=== PATIENT | female | born 1975 | race Caucasian/White ===

== ENCOUNTER 2020-06-21 11:29 | Inpatient (IN) | payer BC ==
[2020-06-21] MEDS ORDERED: Acetaminophen 650 MG Supp RECTAL PRN (12:21)
[2020-06-21] MEDS ORDERED: Iopamidol 612 MG/ML 50 ML SDV PO ONE (12:43)
[2020-06-21 12:54] LABS: HEMOGLOBIN A1C 4.2 % (4.5-6.2)
[2020-06-21] MEDS: Dextrose 5%-Lactated Ringers 1,000 ML IV SCH ×2 (13:05→19:01)
[2020-06-21] MEDS: Pantoprazole 40 MG Vial IV SCH (14:10)
[2020-06-21] MEDS ORDERED: Sodium Chloride 0.9% 10 ML Syringe FLUSH ONE (14:17)
[2020-06-21] MEDS ORDERED: Iopamidol 612 MG/ML 100 ML Bottle IV SCH (14:30)
[2020-06-21] MEDS: Potassium Chloride 20 MEQ, Lidocaine 1% 2 ML in Sodium Chloride 0.9% 100 ML IV SCH ×3 (14:30→18:35)
--- NOTE | 2020-06-21 15:11 | CT ---
Abdomen Pelvis w Cont CLINICAL HISTORY: Loose stools, malnutrition COMPARISON: None. TECHNIQUE: Transverse scans were obtained from the base of the lungs to the pubic symphysis following oral contrast and IV infusion of contrast.Auto dosage reduction and iterative reconstructiontechniques employed. FINDINGS: Patient has had previous gastric surgery. There is some fluid in the stomach as well as the descending duodenum. The duodenum narrows as it crosses the aorta behind the SMA. There is generalized small bowel distention in a nonspecific pattern. There is mucosal thickening involving the right colon The lung bases are clear. The liver shows diffuse steatosis. There is a low-attenuation focus in the posterior segment of the right lobe of the liver measuring 1.2 x 1.4 cm. The gallbladder has been removed. The spleen has a normal size and shape. The pancreas shows no mass or inflammatory change The adrenal glands appear normal bilaterally . The kidneys show no mass, stones or hydronephrosis. There is a 1 cm cyst in the upper pole of the right kidney. The ureters have a normal course and caliber. The bladder has normal contour. Uterus is enlarged and heterogeneous with multiple nodules consistent with fibroids. There is a [address] The aorta has a normal contour. There is no suspicious retroperitoneal adenopathy. IMPRESSION: Previous gastric surgery Fluid-filled mildly dilated descending and proximal transverse duodenum which narrows at the crossing of the aorta and SMA. Diffuse mucosal thickening involving the right colon Mild generalized small bowel distention in a nonspecific pattern Previous cholecystectomy 1.2 x 1.4 cm low-attenuation lesion in the right lobe of the liver. This is indeterminate. Should be correlated with ultrasound.
[2020-06-21] MEDS ORDERED: MVI, Adult with Vitamin K 10 ML, Thiamine 100 MG, Magnesium Sulfate 2 GM, Folic Acid 1 ... IV ONE ×5 (16:00)
[2020-06-22] MEDS: Dextrose 5%-Lactated Ringers 1,000 ML IV SCH ×3 (04:34→17:50)
[2020-06-22] MEDS ORDERED: Bupivacaine 0.5% 50 ML MDV ONE (06:38)
[2020-06-22] MEDS ORDERED: Lidocaine 1% with EPINEPHrine 1:100,000 50 ML MDV ONE (06:39)
--- NOTE | 2020-06-22 09:59 | US ---
Abdomen Ltd CLINICAL HISTORY: Liver lesion on current CT FINDINGS: Real-time images through the liver show no focal mass, cyst or intrahepatic ductal dilatation. IMPRESSION: Hypodense lesion seen on current CT is not identified by ultrasound. This is still felt to be a real lesion on CT. It may be isoechoic on ultrasound. MRI of the liver should be considered
[2020-06-22] MEDS ORDERED: Midazolam 1 MG/ML 2 ML SDV ONE (10:09)
[2020-06-22] MEDS ORDERED: Propofol 200 MG/20 ML SDV ONE ×2 (10:09→11:13)
[2020-06-22] MEDS ORDERED: fentaNYL 100 MCG/2 ML SDV ONE (10:09)
[2020-06-22] MEDS ORDERED: Sodium Chloride 0.9% 10 ML ONE (11:14)
[2020-06-22] MEDS ORDERED: ceFAZolin 1 GM Vial ONE (11:14)
--- NOTE | 2020-06-22 12:54 | PN ---
DATE OF SERVICE: 06/22/2020 SUBJECTIVE: Paul is a direct admit from [facility] yesterday for severe protein malnutrition, diarrhea. See copy of history and physical scanned into [employer] electronic medical record. This morning, Paul denies pain. Vital signs have been stable. She is n.p.o. to have a Morin catheter placed. Oral intake 1260. Urine output 1500. REVIEW OF SYSTEMS: CONSTITUTIONAL: Denies any headache, dizziness. CHEST: No chest pain, shortness of breath, or fast irregular heartbeat. Has had 1 stool that was formed. : No UTI signs and symptoms. MUSCULOSKELETAL: Reports less musculoskeletal pain. Continues to have the peripheral lower extremity edema. PSYCHIATRIC: No depression or anxiety. SKIN: No rash. All 12 systems were reviewed and negative for any positives or negatives in addition to chief complaint. LABORATORY DATA: Hemoglobin 10.1 this morning. Potassium on admission was 2.7 and today it is 3.7 after 60 mEq of KCl IV. Calcium 7.1, total protein 3.4 (normal 6.4 to 8.2), albumin 1.4 (3.4 to 5.4). OBJECTIVE: GENERAL: Paul Shelton is a pleasant 44-year-old female. VITAL SIGNS: Height 5 feet 6 inches, weight is 145 pounds, BMI 23.4. TPR at 0200, 96.4, 60, 16, blood pressure 101/71. HEENT: Negative. NECK: Supple. HEART: Regular rate and rhythm. LUNGS: Clear. ABDOMEN: Soft. There is some firmness in the left upper mid quadrant and minimal tenderness with palpation. EXTREMITIES: Reveal 1+ peripheral edema. NEURO: Intact. PSYCHIATRIC: Mood and affect appropriate. SKIN: Without rash. ASSESSMENT: 1. Severe protein malnutrition. 2. Low albumin. 3. Iron deficiency anemia. Recently received iron infusions. 4. 30-pound weight loss. 5. Diarrhea, greater than 10 stools. 6. Status post Aaron-en-Y gastric bypass surgery. 7. Unspecified surgical malabsorption. 8. B12 deficiency. PLAN: 1. Remain n.p.o. for placement of Morin catheter. 2. Albumin 50 g IV daily for 4 days. 3. Ultrasound of liver for a 1.2 x 1.4 cm low-attenuation lesion, right lobe of liver, per request of radiologist. 4. Obtain original operative report of Aaron-en-Y gastric bypass surgery. 5. Additional orders if needed will be written post placement of Morin catheter. Will evaluate p.r.n. or in the a.m. Helen Heath PA-C /[id number]
[2020-06-22] MEDS: Pantoprazole 40 MG Vial IV SCH (15:00)
[2020-06-22] MEDS: 1: AA 5%/Calcium/D15W/Lytes 1,000 ML with MVI, Adult with Vitamin K 10 ML, Chromium/Copp IV SCH ×3 (17:50)
[2020-06-22] MEDS: Fat Emulsion 100 ML IV SCH (17:51)
[2020-06-22] MEDS: Acetaminophen 325 MG Tab PO PRN (20:28)
[2020-06-23] MEDS: Acetaminophen 325 MG Tab PO PRN (04:12)
[2020-06-23] MEDS ORDERED: Central Total Parenteral Nutrition Bag SCH (08:15)
[2020-06-23] MEDS: 1: AA 5%/Calcium/D15W/Lytes 1,000 ML with MVI, Adult with Vitamin K 10 ML, Chromium/Copp IV SCH ×9 (09:51→20:28)
[2020-06-23] MEDS: Pantoprazole 40 MG Tab.CR PO SCH (14:48)
--- NOTE | 2020-06-23 17:14 | PN ---
DATE OF SERVICE: 06/23/2020 SUBJECTIVE: Paul has had 3 bowel movements yesterday. She did request to be changed from a step-4 diet to a regular diet, and since changing to a regular diet, she has had multiple bowel movements, which are associated more with dumping. She also has what sounds like lactose intolerance because she has a lot of gas bloating and diarrhea after drinking milk. Albumin continues to be low at 2. Today, globulin is 1.8 and total protein is 3.8. She had a Morin catheter placed yesterday and has been started on TPN. Hemoglobin is 9.9. REVIEW OF SYSTEMS: Denies any headache, dizziness, loss of coordination, chest pain, shortness of breath, or cough. Denies any nausea, vomiting, diarrhea, or constipation. No abdominal pain. EXTREMITIES: Less peripheral edema. NEUROLOGIC: Negative. PSYCHIATRIC: Negative. Remainder of review of systems negative for any pertinent positives and negatives. OBJECTIVE: GENERAL: Paul Shelton is a pleasant 44-year-old female. She is alert and orientated. VITAL SIGNS: TPR at 0700 of 95.9, 54, and 16. Blood pressure 115/71. HEENT: Negative. NECK: Supple. HEART: Regular rate and rhythm. LUNGS: Clear. ABDOMEN: Soft, flat, and nontender. EXTREMITIES: Without peripheral edema. ASSESSMENT: 1. Severe protein malnutrition. 2. Low albumin. 3. Iron-deficiency anemia. 4. A 30-pound weight loss. 5. Diarrhea. 6. Status post Aaron-en-Y gastric bypass surgery. 7. Unspecified surgical malabsorption. 8. B12 deficiency. PLAN: 1. Continue same TPN rate and content. 2. Check CBC, CMP, magnesium, and phosphorus and may shower. 3. We will evaluate p.r.n. or in a.m. Helen Heath PA-C /[id number]
[2020-06-23] MEDS: Fat Emulsion 100 ML IV SCH (18:35)
[2020-06-24] MEDS: Dextrose 5%-Lactated Ringers 1,000 ML IV SCH (05:20)
[2020-06-24] MEDS: 1: AA 5%/Calcium/D15W/Lytes 1,000 ML with MVI, Adult with Vitamin K 10 ML, Chromium/Copp IV SCH ×3 (07:21)
[2020-06-24] MEDS: Pantoprazole 40 MG Tab.CR PO SCH (07:24)
[2020-06-24] MEDS: AA 5%/Calcium/D15W/Lytes 1,000 ML IV SCH (17:57)
[2020-06-24] MEDS: Fat Emulsion 100 ML IV SCH (17:57)
[2020-06-25] MEDS: AA 5%/Calcium/D15W/Lytes 1,000 ML IV SCH ×2 (03:53→14:39)
[2020-06-25] MEDS: Pantoprazole 40 MG Tab.CR PO SCH (07:19)
[2020-06-25] MEDS: Vitamin A 100,000 Units/2 ML SDV IM SCH (09:32)
[2020-06-25] MEDS: Dextrose 5%-Lactated Ringers 1,000 ML IV SCH (12:33)
[2020-06-25] MEDS ORDERED: Furosemide 20 MG/2 ML VIAL IVPUSH ONE (14:00)
--- NOTE | 2020-06-25 14:15 | PN ---
DATE OF SERVICE: 06/25/2020 The patient has been afebrile with stable vital signs. The patient was still having frequent bowel movements, although bit more formed. The plan will be to proceed with an exploratory laparotomy with release of the small bowel obstruction and possible bowel resection and then we will form a Aaron-en-Y duodenojejunostomy for treatment of SMA syndrome as well as release of any duodenal bands that might be contributing to that tight angle between the superior mesenteric artery and aorta. Her hemoglobin was 8.6, and we will give her 1 unit of packed RBCs today and some Lasix after that. Otherwise, plan is to proceed with exploration as outlined above tomorrow. Potential risks of the procedure were reviewed, and the patient wishes to proceed. One additional note is her vitamin A level came back extremely low at 7.7. We will initiate vitamin A replenishment with 100,000 units IM today and then x3 days and then transition over to oral doses thereafter. This is more evident with the patient having quite a bit of problems with issues of malabsorption. Francisco Javier Kilgore MD /[id number]
--- NOTE | 2020-06-25 14:21 | PN ---
DATE OF SERVICE: 06/24/2020 The patient has been afebrile with stable vital signs. She did have a large amount of bowel activity yesterday, multiple bowel movements in large volume. Carnivore diet did include some sugar and mild products, and she will be instructed to try and back down those. Otherwise, we will continue the TPN. Her chloride is getting somewhat high and we will change the electrolyte formula to try to get the chloride come down more toward normal, and hemoglobin was also down to 8.8. Again, she has not been losing any blood, but this is an phenomenon likely related to her poorly nourished state. Plan at this point would be to do an exploratory laparotomy on Friday. This would include treatment of the superior mesenteric artery syndrome along with looking for any adhesions or problems related to her small bowel at this point as this problem with the diarrhea and this bowel movements occurred after previous exploration in [place]. We will just continue the albumin supplementation, recheck labs, and type and cross with 2 units of packed RBCs tomorrow. FranciscoJ avier Kilgore MD /[id number]
[2020-06-25] MEDS: Fat Emulsion 100 ML IV SCH (17:48)
[2020-06-26] MEDS: AA 5%/Calcium/D15W/Lytes 1,000 ML IV SCH ×3 (00:52→20:30)
[2020-06-26] MEDS ORDERED: Bupivacaine 0.5% 50 ML MDV ONE ×2 (07:02→07:03)
[2020-06-26] MEDS ORDERED: Meropenem 500 MG SDV ONE ×2 (07:02→08:57)
[2020-06-26] MEDS ORDERED: Lidocaine 1% with EPINEPHrine 1:100,000 50 ML MDV ONE (07:03)
[2020-06-26] MEDS: Vitamin A 100,000 Units/2 ML SDV IM SCH (08:34)
[2020-06-26] MEDS: Pantoprazole 40 MG Tab.CR PO SCH (08:34)
[2020-06-26] MEDS ORDERED: Dexamethasone 4 MG/ML SDV ONE (08:50)
[2020-06-26] MEDS ORDERED: Propofol 200 MG/20 ML SDV ONE (08:50)
[2020-06-26] MEDS ORDERED: Neostigmine Methylsulfate 1 MG/ML 5 ML Syringe ONE (08:50)
[2020-06-26] MEDS ORDERED: Succinylcholine 200 MG/10 ML MDV ONE (08:50)
[2020-06-26] MEDS ORDERED: Glycopyrrolate 0.2 MG/ML 5 ML MDV ONE (08:50)
[2020-06-26] MEDS ORDERED: Rocuronium 50 MG/5 ML Vial ONE (08:50)
[2020-06-26] MEDS ORDERED: Ondansetron 4 MG/2 ML SDV ONE (08:50)
[2020-06-26] MEDS ORDERED: Magnesium Sulfate 2.1 GM in Sodium Chloride 0.9% 100 ML IV SCH (10:30)
[2020-06-26] MEDS ORDERED: Magnesium Sulfate 3.4 GM in Sodium Chloride 0.9% 250 ML IV ONE (10:30)
[2020-06-26] MEDS ORDERED: Ketamine 50 MG in Sodium Chloride 0.9% 49.5 ML IV SCH (10:30)
[2020-06-26] MEDS ORDERED: Ketamine 500 MG/5 ML MDV IV SCH (10:30)
[2020-06-26] MEDS ORDERED: cefOXitin 2 GM in Sodium Chloride 0.9% 50 ML IV ONE (10:30)
[2020-06-26] MEDS ORDERED: Ropivacaine 35 ML, dexAMETHasone 8 MG, EPINEPHrine 0.4 MG, Sodium Chloride 0.9% 42.6 ML NERVRT SCH ×4 (10:30)
[2020-06-26] MEDS ORDERED: fentaNYL 250 MCG/5 ML SDV ONE (13:12)
--- NOTE | 2020-06-26 13:19 | PN ---
DATE OF SERVICE: 06/26/2020 SUBJECTIVE: Paul is n.p.o. She will be having surgery today. She had a Morin placed last week. Vitamin A is 7.7. She received 1 unit of packed red blood cells over the weekend for a hemoglobin of 8.8. REVIEW OF SYSTEMS: Remainder of review of systems negative for any pertinent positives and negatives. OBJECTIVE: GENERAL: Paul Shelton is a pleasant 44-year-old female. She is alert and orientated. Color pale. TPN running without any difficulty. VITAL SIGNS: TPR at 0708 is 96.6; 56; 16; blood pressure 121/71. HEENT: Negative. NECK: Supple. HEART: Regular rate and rhythm. LUNGS: Clear. ABDOMEN: Soft, nontender. EXTREMITIES: Without peripheral edema. ASSESSMENT: Severe protein malnutrition, low albumin, iron deficiency anemia, 30-pound weight loss, diarrhea, status post Aaron-en-Y gastric bypass surgery, unspecified surgical malabsorption, B12 deficiency, and most recently vitamin A deficiency. PLAN: Orders to be written postoperatively. To remain n.p.o. Helen Heath PA-C /[id number]
[2020-06-26] MEDS ORDERED: Lactated Ringers 1,000 ML ONE (13:49)
[2020-06-26] MEDS: Dextrose 5%-Lactated Ringers 1,000 ML IV SCH (14:30)
--- NOTE | 2020-06-26 15:37 | PCM.CONS ---
H&P History of Present Illness - General Date of Service: 06/26/20 Admit Problem/Dx: Admission Diagnosis/Problem Admission Diagnosis/Problem Malnutrition Source of Information: Patient, Provider, RN Notes Reviewed History Limitations: Reports: No Limitations - History of Present Illness Initial Comments - Free Text/Narative: Ms. Shelton is a 44-year-old woman who I been asked to see by Dr. Kilgore for recommendations concerning evaluation and management of a bradycardic cardiac dysrhythmia. She was admitted to this facility last week with severe malnutrition and underlying small bowel obstruction as well as superior mesenteric artery syndrome. She is received TPN over the past several days and reports that she actually has been feeling quite a bit better. She was taken to the operating room today for an exploratory laparotomy. Prior to surgery she was placed on cardiac monitoring and noted to be bradycardic with rates into the 30s. EKG has been obtained and appears to be consistent with sinus node dysfunction and junctional escape rhythm. Because of her malnutrition she had become progressively more weak, over the past week strength is improved and she has been able to ambulate in the hallways without significant difficulty. She denies any symptoms of chest pain or pressure significant dyspnea, palpitations, or lightheadedness. She denies any previous history of cardiac disease. Left Shoulder Pain Score (Numeric/FACES): 0 - Related Data Allergies/Adverse Reactions: Allergies Allergy/AdvReac Type Severity Reaction Status Date / Time No Known Allergies Allergy Verified 06/21/20 12:03 Home Medications: Home Meds Calcium Carbonate/Vitamin D3 [Calcium 500-Vit D3 200 Caplet] 1 tab PO BID 06/21/20 [History] Cyanocobalamin (Vitamin B-12) [Vitamin B-12] 1,000 mcg SL DAILY 06/21/20 [History] Multivitamin/Iron/Folic Acid [Centrum Adults Tablet] 1 tab PO DAILY 06/21/20 [History] Vitamin B Complex [B Complex] 1 tab PO DAILY 06/21/20 [History] Past Medical History HEENT History: Reports: None Cardiovascular History: Reports: None Respiratory History: Reports: None Gastrointestinal History: Reports: Chronic Diarrhea Genitourinary History: Reports: None [employer] SPECIALIST History: Reports: None Musculoskeletal History: Reports: None Neurological History: Reports: None Psychiatric History: Reports: None Endocrine/Metabolic History: Reports: None Hematologic History: Reports: None Immunologic History: Reports: None Oncologic (Cancer) History: Reports: None Dermatologic History: Reports: None - Infectious Disease History Infectious Disease History: Reports: None - Past Surgical History Head Surgeries/Procedures: Reports: None HEENT Surgical History: Reports: None Cardiovascular Surgical History: Reports: None Respiratory Surgical History: Reports: None GI Surgical History: Reports: Bariatric Procedure, Cholecystectomy, Hernia, Abdominal Female Surgical History: Reports: None Endocrine Surgical History: Reports: None Neurological Surgical History: Reports: None Musculoskeletal Surgical History: Reports: None Oncologic Surgical History: Reports: None Dermatological Surgical History: Reports: None Social & Family History - Tobacco Use Smoking Status *Q: Current Every Day Smoker Years of Tobacco use: 20 Packs/Tins Daily: 1 Used Tobacco, but Quit: No Second Hand Smoke Exposure: No - Caffeine Use Caffeine Use: Reports: Soda - Recreational Drug Use Recreational Drug Use: No H&P Review of Systems - Review of Systems: Review Of Systems: See Below General: Reports: Weakness, Fatigue, Weight Loss. Denies: Fever, Chills Pulmonary: Reports: No Symptoms Cardiovascular: Reports: No Symptoms Gastrointestinal: Reports: Diarrhea. Denies: Abdominal Pain, Difficulty Swallowing, Distension, Hematemesis, Hematochezia, Melena, Nausea, Vomiting Genitourinary: Reports: No Symptoms Musculoskeletal: Reports: No Symptoms Skin: Reports: No Symptoms Exam - Exam Exam: See Below - Vital Signs Vital Signs: Last Vital Signs Temp 95.9 F L 06/26/20 14:34 Pulse 66 06/26/20 10:53 Resp 16 06/26/20 14:34 BP 130/76 06/26/20 14:34 Pulse Ox 100 06/26/20 14:34 Weight: 156 lb 9.6 oz - Exam Quality Assessment: DVT Prophylaxis General: Alert, Oriented, Cooperative, Mild Distress HEENT: Conjunctiva Clear, Hearing Intact, Mucosa Moist & [place], Normal Nasal Septum, Posterior Pharynx Clear, Pupils Equal Neck: Supple, Trachea Midline, +2 Carotid Pulse wo Bruit Lungs: Clear to Auscultation, Normal Respiratory Effort Cardiovascular: Normal S1, Normal S2, Irregular Rhythm, Bradycardia. No: Systolic Murmur, Diastolic Murmur GI/Abdominal Exam: Soft, Non-Tender, No Organomegaly, No Distention Back Exam: Normal Inspection, Full Range of Motion Extremities: Non-Tender, No Pedal Edema - Patient Data Lab Results Last 24 hrs: Laboratory Results - last 24 hr 06/21/20 06/26/20 06/26/20 Range/Units 12:40 04:30 04:30 WBC 5.7 (4.5-11.0) K/uL RBC 3.19 L (3.30-5.50) M/uL Hgb 10.0 L (12.0-15.0) g/dL Hct 31.4 L (36.0-48.0) % MCV 98 (80-98) fL MCH 31 (27-31) pg MCHC 32 (32-36) % Plt Count 214 (150-400) K/uL Sodium 142 (140-148) mmol/L Potassium 4.8 (3.6-5.2) mmol/L Chloride 107 (100-108) mmol/L Carbon Dioxide 33 H (21-32) mmol/L Anion Gap 6.8 (5.0-14.0) mmol/L BUN 12 (7-18) mg/dL Creatinine 0.4 L (0.6-1.0) mg/dL Est Cr Clr Drug Dosing 168.02 mL/min Estimated GFR (MDRD) > 60 (>60) Glucose 83 (74-106) mg/dL Calcium 7.9 L (8.5-10.1) mg/dL Phosphorus 4.3 (2.5-4.9) mg/dL Magnesium 2.1 (1.8-2.4) mg/dL Total Bilirubin 0.5 (0.2-1.0) mg/dL AST 66 H (15-37) U/L ALT 82 H (12-78) U/L Alkaline Phosphatase 49 (46-116) U/L NT-Pro-B Natriuret Pep 336 H (5-125) pg/mL Total Protein 4.5 L (6.4-8.2) g/dL Albumin 2.8 L (3.4-5.0) g/dL Globulin 1.7 L (2.3-3.5) g/dL Albumin/Globulin Ratio 1.7 (1.2-2.2) Thiamine (Vit B1) [place] 169.4 (66.5-200.0) nmol/L Result Diagrams: 06/26/20 04:30 06/26/20 04:30 Sepsis Event Note - Evaluation Sepsis Screening Result: No Definite Risk - Focused Exam Vital Signs: Vital Signs Temp Pulse Resp BP Pulse Ox 06/26/20 14:34 95.9 F L 16 130/76 100 06/26/20 10:53 95.7 F L 66 16 106/75 95 06/26/20 07:08 96.6 F L 56 L 16 121/71 98 06/26/20 03:58 95.1 F L 45 L 16 109/72 98 *Q Meaningful Use (ADM) - VTE Risk Assess *Q Each Risk Factor Represents 1 Point: Age 41 - 59 years Total Score 1 Point Risk Factors: 1 Each Risk Factor Represents 2 Points: None, Major surgery greater than 45 minutes Total Score 2 Point Risk Factors: 2 Each Risk Factor Represents 3 Points: None Total Score 3 Point Risk Factors: 0 Each Risk Factor Represents 5 Points: None Total Score 5 Point Risk Factors: 0 Venous Thromboembolism Risk Factor Score *Q: 3 Consult PN Assessment/Plan Problem List Initiated/Reviewed/Updated: Yes My Orders Last 24 Hours: My Active Orders 06/26/20 14:50 TSH ULTRASENSITIVE [CHEM] Urgent 06/27/20 08:00 Echo Comp wo Cont [US] Urgent Plan: ASSESSMENT AND RECOMMENDATIONS BRADYCARDIA-underlying rhythm appears to be sinus node dysfunction with junctional escape beats. She denies any previous history of cardiac disease and really for the most part is asymptomatic. Potentially may be secondary to her underlying malnutrition. TSH has been ordered as well as echocardiogram. No history of infiltrative disease process or inflammatory disease. -Hold on surgery pending further cardiac evaluation -Cardiac monitoring -TSH -Echocardiogram Requesting Provider: GALO Date Consult Requested: 06/26/20 Reason for Consult: Bradycardia Patient History Reviewed: Yes
[2020-06-26] MEDS: Fat Emulsion 100 ML IV SCH (17:57)
[2020-06-27] MEDS: AA 5%/Calcium/D15W/Lytes 1,000 ML IV SCH (06:54)
[2020-06-27] MEDS: Pantoprazole 40 MG Tab.CR PO SCH (08:35)
[2020-06-27] MEDS: Vitamin A 100,000 Units/2 ML SDV IM SCH (08:35)
[2020-06-27] MEDS ORDERED: Benzocaine/Cetylpyridinium/Menthol Lozenge MUCMEM PRN (11:57)
[2020-06-27] MEDS: Dextrose 5%-Lactated Ringers 1,000 ML IV SCH (15:39)
--- NOTE | 2020-06-27 15:42 | PCM.CONSN ---
- General Info Date of Service: 06/27/20 Subjective Update: Ms. Shelton has remained stable over the last 24 hours. Review of telemetry monitoring shows that he she has been in sinus rhythm since yesterday afternoon. Rates are often into the 40s and 50s, she is entirely asymptomatic. Preliminary report from echocardiogram shows excellent left ventricular function, normal chamber sizes, and no significant valvular abnormalities. Functional Status: Reports: Tolerating Diet, Ambulating, Urinating - Review of Systems General: Reports: No Symptoms Pulmonary: Reports: No Symptoms Cardiovascular: Reports: No Symptoms Gastrointestinal: Reports: Diarrhea. Denies: Abdominal Pain, Constipation, Difficulty Swallowing, Nausea, Vomiting - Patient Data Vitals - Most Recent: Last Vital Signs Temp 97.4 F 06/27/20 11:51 Pulse 56 L 06/27/20 11:51 Resp 16 06/27/20 11:51 BP 126/74 06/27/20 11:51 Pulse Ox 97 06/27/20 11:51 Weight - Most Recent: 160 lb I&O - Last 24 Hours: Intake & Output 06/27/20 06/27/20 06/27/20 06:59 14:59 22:59 Intake Total 1751 120 Output Total 700 1000 Balance 1051 -880 Lab Results Last 24 Hours: Laboratory Results - last 24 hr 06/27/20 06/27/20 06/27/20 Range/Units 04:10 04:10 04:10 WBC 4.7 (4.5-11.0) K/uL RBC 3.22 L (3.30-5.50) M/uL Hgb 10.3 L (12.0-15.0) g/dL Hct 32.2 L (36.0-48.0) % MCV 100 H (80-98) fL MCH 32 H (27-31) pg MCHC 32 (32-36) % Plt Count 201 (150-400) K/uL Neut % (Auto) 47 (36-66) % Lymph % (Auto) 47 H (24-44) % Frontier % (Auto) 5 (2-6) % Eos % (Auto) 2 (2-4) % Baso % (Auto) 0 (0-1) % Sodium 141 (140-148) mmol/L Potassium 5.6 H (3.6-5.2) mmol/L Chloride 106 (100-108) mmol/L Carbon Dioxide 34 H (21-32) mmol/L Anion Gap 6.6 (5.0-14.0) mmol/L BUN 14 (7-18) mg/dL Creatinine 0.5 L (0.6-1.0) mg/dL Est Cr Clr Drug Dosing 134.41 mL/min Estimated GFR (MDRD) > 60 (>60) Glucose 76 (74-106) mg/dL Calcium 7.9 L (8.5-10.1) mg/dL Phosphorus 4.9 (2.5-4.9) mg/dL Magnesium 2.1 (1.8-2.4) mg/dL Total Bilirubin 0.5 (0.2-1.0) mg/dL AST 183 H D (15-37) U/L ALT 164 H (12-78) U/L Alkaline Phosphatase 64 (46-116) U/L NT-Pro-B Natriuret Pep 375 H (5-125) pg/mL Total Protein 4.5 L (6.4-8.2) g/dL Albumin 2.6 L (3.4-5.0) g/dL Globulin 1.9 L (2.3-3.5) g/dL Albumin/Globulin Ratio 1.4 (1.2-2.2) Med Orders - Current: Current Medications Acetaminophen (Tylenol) 650 mg PO Q4H PRN PRN Reason: PAIN/FEVER Last Admin: 06/23/20 04:12 Dose: 650 mg Documented by: Acetaminophen (Tylenol) 650 mg RECTAL Q4H PRN PRN Reason: PAIN/FEVER Benzocaine/Menthol (Cepacol Sore Throat) 1 lozenge MUCMEM ASDIRECTED PRN PRN Reason: Sore Throat Heparin Sodium (Porcine) (Heparin Lock Flush 100 Units/Ml) 500 units FLUSH ASDIRECTED PRN PRN Reason: IV Use Last Admin: 06/23/20 07:32 Dose: 500 units Documented by: Fat Emulsion Intravenous (Intralipid 20%) 100 mls @ 10 mls/hr IV DAILY@1800 [facility] Last Admin: 06/26/20 17:57 Dose: 10 mls/hr Documented by: Dextrose/Lactated Ringer's (Dextrose 5%-Lactated Ringers) 1,000 mls @ 40 mls/hr IV ASDIRECTED [facility] Last Admin: 06/26/20 14:30 Dose: 40 mls/hr Documented by: Multivitamins/Minerals 10 ml/Chromium/Copper/Manganese/Seleni/Zn 1 ml/ Amino Ac/Electrol/Dextrose/Calcium 1,011 mls @ 82 mls/hr IV .BY DURATION [facility] Amino Ac/Electrol/Dextrose/Calcium (Clinimix E 5/15) 1,000 mls @ 82 mls/hr IV .BY DURATION [facility] Albumin Human (Albumin 25%) 25 gm in 100 mls @ 25 mls/hr IV DAILY [facility] Stop: 06/29/20 12:59 Last Admin: 06/27/20 08:35 Dose: 25 mls/hr Documented by: Pantoprazole Sodium (Protonix) 40 mg PO ACBREAKFAST [facility] Last Admin: 06/27/20 08:35 Dose: 40 mg Documented by: Discontinued Medications Bupivacaine HCl (Marcaine 0.5%) Confirm Administered Dose 50 ml .ROUTE .STK-MED ONE Stop: 06/22/20 06:39 Last Admin: 06/22/20 11:02 Dose: 5 ml Documented by: Bupivacaine HCl (Marcaine 0.5%) Confirm Administered Dose 50 ml .ROUTE .STK-MED ONE Stop: 06/26/20 07:03 Bupivacaine HCl (Marcaine 0.5%) Confirm Administered Dose 50 ml .ROUTE .STK-MED ONE Stop: 06/26/20 07:04 Cefazolin Sodium (Ancef) Confirm Administered Dose 1 gm .ROUTE .STK-MED ONE Stop: 06/22/20 11:15 Ropivacaine 35 ml/Dexamethasone 8 mg/Epinephrine HCl 0.4 mg/ Sodium Chloride 42 .6 ml 0 ml NERVRT ASDIRECTED [facility] Last Admin: 06/26/20 13:20 Dose: Not Given Documented by: Dexamethasone (Dexamethasone) Confirm Administered Dose 4 mg .ROUTE .STK-MED ONE Stop: 06/26/20 08:51 Fentanyl (Sublimaze) Confirm Administered Dose 100 mcg .ROUTE .STK-MED ONE Stop: 06/22/20 10:10 Fentanyl (Sublimaze) Confirm Administered Dose 250 mcg .ROUTE .STK-MED ONE Stop: 06/26/20 13:13 Furosemide (Lasix) 20 mg IVPUSH ONETIME ONE Stop: 06/25/20 14:01 Last Admin: 06/25/20 14:38 Dose: 20 mg Documented by: Glycopyrrolate (Robinul) Confirm Administered Dose 1 mg .ROUTE .STK-MED ONE Stop: 06/26/20 08:51 Heparin Sodium (Porcine) (Heparin Lock Flush 100 Units/Ml) Confirm Administered Dose 1,500 units .ROUTE .STK-MED ONE Stop: 06/22/20 06:39 Last Admin: 06/22/20 11:03 Dose: 1,000 units Documented by: Dextrose/Lactated Ringer's (Dextrose 5%-Lactated Ringers) 1,000 mls @ 100 mls/hr IV ASDIRECTED [facility] Stop: 06/22/20 18:00 Last Admin: 06/22/20 14:58 Dose: 100 mls/hr Documented by: Multivitamins/Minerals 10 ml/Thiamine HCl 100 mg/ Magnesium Sulfate 2 gm/ Folic Acid 1 mg / Lactated Ringer's 1,015.2 mls @ 500 mls/hr IV ONETIME ONE Stop: 06/21/20 18:01 Last Admin: 06/21/20 16:24 Dose: 500 mls/hr Documented by: Potassium Chloride 20 meq/Lidocaine HCl 2 ml/ Sodium Chloride 112 mls @ 56 mls/hr IV Q2H [facility] Stop: 06/21/20 19:59 Last Admin: 06/21/20 18:35 Dose: 56 mls/hr Documented by: Sodium Chloride (Normal Saline) 70 mls @ 3 mls/sec IV ASDIRECTED [facility] Stop: 06/21/20 14:31 Last Admin: 06/21/20 14:39 Dose: 3 mls/sec Documented by: Albumin Human (Albumin 25%) 25 gm in 100 mls @ 25 mls/hr IV Q24H [facility] Stop: 06/25/20 13:59 Last Admin: 06/25/20 12:37 Dose: 25 mls/hr Documented by: Albumin Human (Albumin 25%) 25 gm in 100 mls @ 25 mls/hr IV Q24H [facility] Stop: 06/25/20 17:59 Last Admin: 06/25/20 16:01 Dose: 25 mls/hr Documented by: Sodium Chloride (Normal Saline) Confirm Administered Dose 10 mls @ as directed .ROUTE .STK-MED ONE Stop: 06/22/20 11:15 Multivitamins/Minerals 10 ml/Chromium/Copper/Manganese/Seleni/Zn 1 ml/ Amino Ac/Electrol/Dextrose/Calcium 1,011 mls @ 100 mls/hr IV .BY DURATION [facility] Last Admin: 06/22/20 17:50 Dose: 100 mls/hr Documented by: Amino Ac/Electrol/Dextrose/Calcium (Clinimix E 5/15) 1,000 mls @ 100 mls/hr IV .BY DURATION [facility] Last Admin: 06/23/20 10:16 Dose: Not Given Documented by: Multivitamins/Minerals 10 ml/Chromium/Copper/Manganese/Seleni/Zn 1 ml/ Amino Ac/Electrol/Dextrose/Calcium 1,011 mls @ 100 mls/hr IV .BY DURATION [facility] Stop: 06/24/20 15:00 Last Admin: 06/24/20 07:21 Dose: 100 mls/hr Documented by: Amino Ac/Electrol/Dextrose/Calcium (Clinimix E 5/15) 1,000 mls @ 100 mls/hr IV .BY DURATION [facility] Stop: 06/24/20 15:00 Last Admin: 06/23/20 20:28 Dose: 100 mls/hr Documented by: Amino Ac/Electrol/Dextrose/Calcium (Clinimix E 5/15) 1,000 mls @ 100 mls/hr IV .Q10H [facility] Last Admin: 06/27/20 06:54 Dose: 100 mls/hr Documented by: Cefoxitin Sodium 2 gm/ Sodium (Chloride) 50 mls @ 100 mls/hr IV ONCALL ONE Stop: 06/26/20 10:59 Last Admin: 06/26/20 13:15 Dose: 100 mls/hr Documented by: Lactated Ringer's (Ringers, Lactated) Confirm Administered Dose 1,000 mls @ as directed .ROUTE .STK-MED ONE Stop: 06/26/20 13:50 Iopamidol (Isovue-300 (61%)) 50 ml PO ASDIRECTED ONE Stop: 06/21/20 12:44 Last Admin: 06/21/20 13:02 Dose: 50 ml Documented by: Iopamidol (Isovue-300 (61%)) 100 ml IV . DIRECTED [facility] Stop: 06/21/20 14:31 Last Admin: 06/21/20 14:39 Dose: 100 ml Documented by: Lidocaine/Epinephrine (Xylocaine 1% With Epinephrine 1:100,000) Confirm Administered Dose 50 ml .ROUTE .STK-MED ONE Stop: 06/22/20 06:40 Last Admin: 06/22/20 11:02 Dose: 5 ml Documented by: Lidocaine/Epinephrine (Xylocaine 1% With Epinephrine 1:100,000) Confirm Administered Dose 50 ml .ROUTE .STK-MED ONE Stop: 06/26/20 07:04 Meropenem (Merrem) Confirm Administered Dose 500 mg .ROUTE .STK-MED ONE Stop: 06/26/20 07:03 Meropenem (Merrem) Confirm Administered Dose 500 mg .ROUTE .STK-MED ONE Stop: 06/26/20 08:58 Midazolam HCl (Versed 1 Mg/Ml) Confirm Administered Dose 2 mg .ROUTE .STK-MED ONE Stop: 06/22/20 10:10 Neostigmine Methylsulfate (Neostigmine) Confirm Administered Dose 5 mg .ROUTE .STK-MED ONE Stop: 06/26/20 08:51 Non-Formulary Medication (Total Parenteral Nutrition, Central) 1,000 ml .XX .Continue Order [facility] Stop: 06/23/20 18:00 Ondansetron HCl (Zofran) Confirm Administered Dose 4 mg .ROUTE .STK-MED ONE Stop: 06/26/20 08:51 Pantoprazole Sodium (Protonix Iv) 40 mg IV Q24H [facility] Last Admin: 06/22/20 15:00 Dose: 40 mg Documented by: Propofol (Diprivan 20 Ml) Confirm Administered Dose 200 mg .ROUTE .STK-MED ONE Stop: 06/22/20 10:10 Propofol (Diprivan 20 Ml) Confirm Administered Dose 200 mg .ROUTE .STK-MED ONE Stop: 06/22/20 11:14 Sodium Chloride (Saline Flush) 10 ml FLUSH ONETIME ONE Stop: 06/21/20 14:18 Last Admin: 06/21/20 14:38 Dose: 10 ml Documented by: Vitamin A Palmitate (Aquasol A) 100,000 unit IM DAILY [facility] Stop: 06/27/20 09:01 Last Admin: 06/27/20 08:35 Dose: 100,000 unit Documented by: - Exam General: Alert, Oriented, Cooperative, No Acute Distress Lungs: Clear to Auscultation, Normal Respiratory Effort Cardiovascular: Regular Rhythm, No Murmurs, Bradycardia GI/Abdominal Exam: Soft, Non-Tender, No Organomegaly, No Distention Extremities: Non-Tender, No Pedal Edema Sepsis Event Note - Evaluation Sepsis Screening Result: No Definite Risk - Focused Exam Vital Signs: Vital Signs Temp Pulse Pulse Resp BP Pulse Ox 06/27/20 11:51 97.4 F 56 L 16 126/74 97 06/27/20 09:06 96.6 F L 60 16 101/58 L 98 Consult PN Assessment/Plan Problem List Initiated/Reviewed/Updated: Yes My Orders Last 24 Hours: My Active Orders 06/27/20 08:00 Echo Comp wo Cont [US] Urgent Plan: ASSESSMENT AND RECOMMENDATIONS BRADYCARDIA-underlying rhythm appears to be sinus node dysfunction with junctional escape beats. TSH was found to be normal and echocardiogram, preliminary report, appears to be normal as well. Reviewed with EP cardiology, dysrhythmia likely caused by a vagal episode versus medication. Plan to proceed with surgery as scheduled for June 29. -Cardiac monitoring
[2020-06-27] MEDS: Fat Emulsion 100 ML IV SCH (17:50)
[2020-06-27] MEDS: 1: AA 5%/Calcium/D15W/Lytes 1,000 ML with MVI, Adult with Vitamin K 10 ML, Chromium/Copp IV SCH ×3 (19:25)
[2020-06-28] MEDS: 1: AA 5%/Calcium/D15W/Lytes 1,000 ML with MVI, Adult with Vitamin K 10 ML, Chromium/Copp IV SCH ×6 (07:58→20:29)
[2020-06-28] MEDS ORDERED: Central Total Parenteral Nutrition Bag SCH (08:00)
[2020-06-28] MEDS: Pantoprazole 40 MG Tab.CR PO SCH (08:05)
--- NOTE | 2020-06-28 12:55 | PN ---
DATE OF SERVICE: 06/28/2020 SUBJECTIVE: Paul's surgery was canceled due to cardiac arrhythmia. She did have a hospitalist consult, and she will be scheduled for surgery tomorrow. She continues to have TPN running. Vital signs have been stable. Oral intake 1120. Urine output is 2400. States she is having bowel movements every time she eats. REVIEW OF SYSTEMS: Remainder of review of systems negative for any pertinent positives and negatives. OBJECTIVE: GENERAL: Paul is a pleasant 44-year-old female. She is alert and orientated. VITAL SIGNS: TPR is 97.3, 52, 16, blood pressure is 108/61. HEENT: Negative. NECK: Supple. HEART: Regular rate and rhythm. LUNGS: Clear. ABDOMEN: Soft, nontender. EXTREMITIES: Without peripheral edema. ASSESSMENT: 1. Severe protein malnutrition. 2. Low albumin. 3. Iron deficiency anemia. 4. Diarrhea. 5. Status post Aaron-en-Y gastric bypass surgery. 6. Unspecified surgical malabsorption. 7. B12 deficiency. 8. Vitamin A deficiency. 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 Case to follow, 06/29/2020. Surgeon: Francisco Javier Kilgore MD. Cefoxitin 2 g IV on-call to OR and n.p.o. after midnight. Continue same TPN rate and content. Check CBC, CMP, mag, phos in a.m. Helen Heath PA-C /[id number]
--- NOTE | 2020-06-28 15:24 | PCM.CONSN ---
- General Info Date of Service: 06/28/20 Subjective Update: Ms. Shelton has remained stable over the last 24 hours. She has remained in sinus rhythm, often bradycardic. No further evidence of significant bradycardia or junctional rhythm. Functional Status: Reports: Ambulating, Urinating - Review of Systems General: Reports: Weakness. Denies: Fever, Chills Pulmonary: Reports: No Symptoms Cardiovascular: Reports: No Symptoms Gastrointestinal: Reports: No Symptoms - Patient Data Vitals - Most Recent: Last Vital Signs Temp 97.0 F 06/28/20 14:22 Pulse 60 06/28/20 14:22 Resp 16 06/28/20 14:22 BP 108/67 06/28/20 14:22 Pulse Ox 97 06/28/20 14:22 Weight - Most Recent: 156 lb 12.8 oz I&O - Last 24 Hours: Intake & Output 06/28/20 06/28/20 06/28/20 06:59 14:59 22:59 Intake Total 899 660 Output Total 700 2400 Balance 199 -1740 Lab Results Last 24 Hours: Laboratory Results - last 24 hr 06/28/20 06/28/20 Range/Units 04:30 04:30 WBC 4.8 (4.5-11.0) K/uL RBC 3.18 L (3.30-5.50) M/uL Hgb 10.2 L (12.0-15.0) g/dL Hct 32.4 L (36.0-48.0) % MCV 102 H (80-98) fL MCH 32 H (27-31) pg MCHC 32 (32-36) % Plt Count 207 (150-400) K/uL Sodium 143 (140-148) mmol/L Potassium 4.9 (3.6-5.2) mmol/L Chloride 107 (100-108) mmol/L Carbon Dioxide 35 H (21-32) mmol/L Anion Gap 5.9 (5.0-14.0) mmol/L BUN 16 (7-18) mg/dL Creatinine 0.6 (0.6-1.0) mg/dL Est Cr Clr Drug Dosing 112.01 mL/min Estimated GFR (MDRD) > 60 (>60) Glucose 81 (74-106) mg/dL Calcium 8.3 L (8.5-10.1) mg/dL Phosphorus 5.0 H (2.5-4.9) mg/dL Magnesium 2.4 (1.8-2.4) mg/dL Total Bilirubin 0.5 (0.2-1.0) mg/dL AST 89 H (15-37) U/L ALT 148 H (12-78) U/L Alkaline Phosphatase 70 (46-116) U/L NT-Pro-B Natriuret Pep 208 H (5-125) pg/mL Total Protein 4.5 L (6.4-8.2) g/dL Albumin 2.8 L (3.4-5.0) g/dL Globulin 1.7 L (2.3-3.5) g/dL Albumin/Globulin Ratio 1.7 (1.2-2.2) Med Orders - Current: Current Medications Acetaminophen (Tylenol) 650 mg PO Q4H PRN PRN Reason: PAIN/FEVER Last Admin: 06/23/20 04:12 Dose: 650 mg Documented by: Acetaminophen (Tylenol) 650 mg RECTAL Q4H PRN PRN Reason: PAIN/FEVER Benzocaine/Menthol (Cepacol Sore Throat) 1 lozenge MUCMEM ASDIRECTED PRN PRN Reason: Sore Throat Ropivacaine 36 ml/Dexamethasone 8 mg/Epinephrine HCl 0.4 mg/ Sodium Chloride 41.6 ml 0 ml NERVRT ASDIRECTED [facility] Heparin Sodium (Porcine) (Heparin Lock Flush 100 Units/Ml) 500 units FLUSH ASDIRECTED PRN PRN Reason: IV Use Last Admin: 06/23/20 07:32 Dose: 500 units Documented by: Fat Emulsion Intravenous (Intralipid 20%) 100 mls @ 10 mls/hr IV DAILY@1800 [facility] Last Admin: 06/27/20 17:50 Dose: 10 mls/hr Documented by: Dextrose/Lactated Ringer's (Dextrose 5%-Lactated Ringers) 1,000 mls @ 40 mls/hr IV ASDIRECTED [facility] Last Admin: 06/27/20 15:39 Dose: 40 mls/hr Documented by: Multivitamins/Minerals 10 ml/Chromium/Copper/Manganese/Seleni/Zn 1 ml/ Amino Ac/Electrol/Dextrose/Calcium 1,011 mls @ 82 mls/hr IV .BY DURATION [facility] Last Admin: 06/27/20 19:25 Dose: 82 mls/hr Documented by: Amino Ac/Electrol/Dextrose/Calcium (Clinimix E 03/10) 1,000 mls @ 82 mls/hr IV .BY DURATION [facility] Last Admin: 06/28/20 07:58 Dose: 82 mls/hr Documented by: Albumin Human (Albumin 25%) 25 gm in 100 mls @ 25 mls/hr IV DAILY [facility] Stop: 06/29/20 12:59 Last Admin: 06/28/20 08:06 Dose: 25 mls/hr Documented by: Cefoxitin Sodium 2 gm/ Sodium (Chloride) 50 mls @ 100 mls/hr IV ONETIME ONE Stop: 06/29/20 08:29 Ketamine HCl 50 mg/ Sodium (Chloride) 50 mls @ 18 mls/hr IV ASDIRECTED [facility] Magnesium Sulfate 2 gm/ Sodium (Chloride) 104 mls @ 208 mls/hr IV ASDIRECTED [facility] Magnesium Sulfate 3.5 gm/ (Sodium Chloride) 257 mls @ 32.125 mls/hr IV ONETIME ONE Stop: 06/29/20 15:59 Ketamine HCl (Ketalar) 30 mg IV ASDIRECTED [facility] Pantoprazole Sodium (Protonix) 40 mg PO ACBREAKFAST [facility] Last Admin: 06/28/20 08:05 Dose: 40 mg Documented by: Discontinued Medications Bupivacaine HCl (Marcaine 0.5%) Confirm Administered Dose 50 ml .ROUTE .STK-MED ONE Stop: 06/22/20 06:39 Last Admin: 06/22/20 11:02 Dose: 5 ml Documented by: Bupivacaine HCl (Marcaine 0.5%) Confirm Administered Dose 50 ml .ROUTE .STK-MED ONE Stop: 06/26/20 07:03 Bupivacaine HCl (Marcaine 0.5%) Confirm Administered Dose 50 ml .ROUTE .STK-MED ONE Stop: 06/26/20 07:04 Cefazolin Sodium (Ancef) Confirm Administered Dose 1 gm .ROUTE .STK-MED ONE Stop: 06/22/20 11:15 Ropivacaine 35 ml/Dexamethasone 8 mg/Epinephrine HCl 0.4 mg/ Sodium Chloride 42.6 ml 0 ml NERVRT ASDIRECTED [facility] Last Admin: 06/26/20 13:20 Dose: Not Given Documented by: Dexamethasone (Dexamethasone) Confirm Administered Dose 4 mg .ROUTE .STK-MED ONE Stop: 06/26/20 08:51 Fentanyl (Sublimaze) Confirm Administered Dose 100 mcg .ROUTE .STK-MED ONE Stop: 06/22/20 10:10 Fentanyl (Sublimaze) Confirm Administered Dose 250 mcg .ROUTE .K-MED ONE Stop: 06/26/20 13:13 Furosemide (Lasix) 20 mg IVPUSH ONETIME ONE Stop: 06/25/20 14:01 Last Admin: 06/25/20 14:38 Dose: 20 mg Documented by: Glycopyrrolate (Robinul) Confirm Administered Dose 1 mg .ROUTE .STK-MED ONE Stop: 06/26/20 08:51 Heparin Sodium (Porcine) (Heparin Lock Flush 100 Units/Ml) Confirm Administered Dose 1,500 units .ROUTE .[facility]-MED ONE Stop: 06/22/20 06:39 Last Admin: 06/22/20 11:03 Dose: 1,000 units Documented by: Dextrose/Lactated Ringer's (Dextrose 5%-Lactated Ringers) 1,000 mls @ 100 mls/hr IV ASDIRECTED [facility] Stop: 06/22/20 18:00 Last Admin: 06/22/20 14:58 Dose: 100 mls/hr Documented by: Multivitamins/Minerals 10 ml/Thiamine HCl 100 mg/ Magnesium Sulfate 2 gm/ Folic Acid 1 mg / Lactated Ringer's 1,015.2 mls @ 500 mls/hr IV ONETIME ONE Stop: 06/21/20 18:01 Last Admin: 06/21/20 16:24 Dose: 500 mls/hr Documented by: Potassium Chloride 20 meq/Lidocaine HCl 2 ml/ Sodium Chloride 112 mls @ 56 mls/hr IV Q2H [facility] Stop: 06/21/20 19:59 Last Admin: 06/21/20 18:35 Dose: 56 mls/hr Documented by: Sodium Chloride (Normal Saline) 70 mls @ 3 mls/sec IV ASDIRECTED [facility] Stop: 06/21/20 14:31 Last Admin: 06/21/20 14:39 Dose: 3 mls/sec Documented by: Albumin Human (Albumin 25%) 25 gm in 100 mls @ 25 mls/hr IV Q24H [facility] Stop: 06/25/20 13:59 Last Admin: 06/25/20 12:37 Dose: 25 mls/hr Documented by: Albumin Human (Albumin 25%) 25 gm in 100 mls @ 25 mls/hr IV Q24H [facility] Stop: 06/25/20 17:59 Last Admin: 06/25/20 16:01 Dose: 25 mls/hr Documented by: Sodium Chloride (Normal Saline) Confirm Administered Dose 10 mls @ as directed .ROUTE .STK-MED ONE Stop: 06/22/20 11:15 Multivitamins/Minerals 10 ml/Chromium/Copper/Manganese/Seleni/Zn 1 ml/ Amino Ac/Electrol/Dextrose/Calcium 1,011 mls @ 100 mls/hr IV .BY DURATION [facility] Last Admin: 06/22/20 17:50 Dose: 100 mls/hr Documented by: Amino Ac/Electrol/Dextrose/Calcium (Clinimix E 5/15) 1,000 mls @ 100 mls/hr IV .BY DURATION [facility] Last Admin: 06/23/20 10:16 Dose: Not Given Documented by: Multivitamins/Minerals 10 ml/Chromium/Copper/Manganese/Seleni/Zn 1 ml/ Amino Ac/Electrol/Dextrose/Calcium 1,011 mls @ 100 mls/hr IV .BY DURATION [facility] Stop: 06/24/20 15:00 Last Admin: 06/24/20 07:21 Dose: 100 mls/hr Documented by: Amino Ac/Electrol/Dextrose/Calcium (Clinimix E 5/15) 1,000 mls @ 100 mls/hr IV .BY DURATION [facility] Stop: 06/24/20 15:00 Last Admin: 06/23/20 20:28 Dose: 100 mls/hr Documented by: Amino Ac/Electrol/Dextrose/Calcium (Clinimix E 5/15) 1,000 mls @ 100 mls/hr IV .Q10H [facility] Last Admin: 06/27/20 06:54 Dose: 100 mls/hr Documented by: Cefoxitin Sodium 2 gm/ Sodium (Chloride) 50 mls @ 100 mls/hr IV ONCALL ONE Stop: 06/26/20 10:59 Last Admin: 06/26/20 13:15 Dose: 100 mls/hr Documented by: Lactated Ringer's (Ringers, Lactated) Confirm Administered Dose 1,000 mls @ as directed .ROUTE .STK-MED ONE Stop: 06/26/20 13:50 Iopamidol (Isovue-300 (61%)) 50 ml PO ASDIRECTED ONE Stop: 06/21/20 12:44 Last Admin: 06/21/20 13:02 Dose: 50 ml Documented by: Iopamidol (Isovue-300 (61%)) 100 ml IV . DIRECTED [facility] Stop: 06/21/20 14:31 Last Admin: 06/21/20 14:39 Dose: 100 ml Documented by: Lidocaine/Epinephrine (Xylocaine 1% With Epinephrine 1:100,000) Confirm Administered Dose 50 ml .ROUTE .STK-MED ONE Stop: 06/22/20 06:40 Last Admin: 06/22/20 11:02 Dose: 5 ml Documented by: Lidocaine/Epinephrine (Xylocaine 1% With Epinephrine 1:100,000) Confirm Administered Dose 50 ml .ROUTE .STK-MED ONE Stop: 06/26/20 07:04 Meropenem (Merrem) Confirm Administered Dose 500 mg .ROUTE .STK-MED ONE Stop: 06/26/20 07:03 Meropenem (Merrem) Confirm Administered Dose 500 mg .ROUTE .STK-MED ONE Stop: 06/26/20 08:58 Midazolam HCl (Versed 1 Mg/Ml) Confirm Administered Dose 2 mg .ROUTE .STK-MED ONE Stop: 06/22/20 10:10 Neostigmine Methylsulfate (Neostigmine) Confirm Administered Dose 5 mg .ROUTE .STK-MED ONE Stop: 06/26/20 08:51 Non-Formulary Medication (Total Parenteral Nutrition, Central) 1,000 ml .XX .Continue Order [facility] Stop: 06/23/20 18:00 Non-Formulary Medication (Total Parenteral Nutrition, Central) 1,000 ml .XX .Continue Order [facility] Stop: 06/28/20 14:00 Ondansetron HCl (Zofran) Confirm Administered Dose 4 mg .ROUTE .STK-MED ONE Stop: 06/26/20 08:51 Pantoprazole Sodium (Protonix Iv) 40 mg IV Q24H [facility] Last Admin: 06/22/20 15:00 Dose: 40 mg Documented by: Propofol (Diprivan 20 Ml) Confirm Administered Dose 200 mg .ROUTE .STK-MED ONE Stop: 06/22/20 10:10 Propofol (Diprivan 20 Ml) Confirm Administered Dose 200 mg .ROUTE .STK-MED ONE Stop: 06/22/20 11:14 Sodium Chloride (Saline Flush) 10 ml FLUSH ONETIME ONE Stop: 06/21/20 14:18 Last Admin: 06/21/20 14:38 Dose: 10 ml Documented by: Vitamin A Palmitate (Aquasol A) 100,000 unit IM DAILY TY[facility] Stop: 06/27/20 09:01 Last Admin: 06/27/20 08:35 Dose: 100,000 unit Documented by: - Exam General: Alert, Oriented, Cooperative, No Acute Distress Lungs: Clear to Auscultation, Normal Respiratory Effort Cardiovascular: Regular Rhythm, No Murmurs, Bradycardia GI/Abdominal Exam: Soft, Non-Tender, No Organomegaly, No Distention Extremities: Non-Tender, No Pedal Edema Sepsis Event Note - Evaluation Sepsis Screening Result: No Definite Risk - Focused Exam Vital Signs: Vital Signs Temp Pulse Resp BP Pulse Ox 06/28/20 14:22 97.0 F 60 16 108/67 97 06/28/20 10:50 96.5 F L 63 16 104/69 99 06/28/20 06:53 97.3 F 52 L 16 108/61 97 Consult PN Assessment/Plan Problem List Initiated/Reviewed/Updated: Yes Plan: ASSESSMENT AND RECOMMENDATIONS BRADYCARDIA-she has remained in sinus rhythm, often bradycardic. No further evidence of junctional rhythm or severe bradycardia. -Cardiac monitoring
[2020-06-28] MEDS: Dextrose 5%-Lactated Ringers 1,000 ML IV SCH (16:58)
[2020-06-28] MEDS: Fat Emulsion 100 ML IV SCH (17:00)
[2020-06-29] MEDS ORDERED: Bupivacaine 0.5% 50 ML MDV ONE (06:55)
[2020-06-29] MEDS ORDERED: Lidocaine 1% with EPINEPHrine 1:100,000 50 ML MDV ONE (06:55)
[2020-06-29] MEDS ORDERED: Dexamethasone 4 MG/ML SDV ONE (07:09)
[2020-06-29] MEDS ORDERED: Ondansetron 4 MG/2 ML SDV ONE (07:09)
[2020-06-29] MEDS ORDERED: Glycopyrrolate 0.2 MG/ML 5 ML MDV ONE (07:09)
[2020-06-29] MEDS ORDERED: fentaNYL 250 MCG/5 ML SDV ONE ×2 (07:09→13:24)
[2020-06-29] MEDS ORDERED: Propofol 200 MG/20 ML SDV ONE (07:09)
[2020-06-29] MEDS ORDERED: Neostigmine Methylsulfate 1 MG/ML 5 ML Syringe ONE (07:09)
[2020-06-29] MEDS ORDERED: Succinylcholine 200 MG/10 ML MDV ONE (07:09)
[2020-06-29] MEDS ORDERED: Rocuronium 50 MG/5 ML Vial ONE (07:09)
[2020-06-29] MEDS ORDERED: Central Total Parenteral Nutrition Bag SCH (07:45)
[2020-06-29] MEDS ORDERED: Ketamine 50 MG in Sodium Chloride 0.9% 49.5 ML IV SCH (08:00)
[2020-06-29] MEDS ORDERED: Ropivacaine 36 ML, dexAMETHasone 8 MG, EPINEPHrine 0.4 MG, Sodium Chloride 0.9% 41.6 ML NERVRT SCH ×4 (08:00)
[2020-06-29] MEDS ORDERED: cefOXitin 2 GM in Sodium Chloride 0.9% 50 ML IV ONE (08:00)
[2020-06-29] MEDS ORDERED: Ketamine 500 MG/5 ML MDV IV SCH ×3 (08:00)
[2020-06-29] MEDS ORDERED: Non-Formulary Medication 1 Each IV ONE ×2 (08:00)
[2020-06-29] MEDS ORDERED: Magnesium Sulfate 3.5 GM in Sodium Chloride 0.9% 250 ML IV ONE (08:00)
[2020-06-29] MEDS ORDERED: Magnesium Sulfate 2 GM in Sodium Chloride 0.9% 100 ML IV SCH (08:00)
[2020-06-29] MEDS: Pantoprazole 40 MG Tab.CR PO SCH (08:28)
[2020-06-29] MEDS: 1: AA 5%/Calcium/D15W/Lytes 1,000 ML with MVI, Adult with Vitamin K 10 ML, Chromium/Copp IV SCH ×6 (08:29→20:35)
--- NOTE | 2020-06-29 08:58 | PN ---
DATE OF SERVICE: 06/29/2020 SUBJECTIVE: Paul is n.p.o. She will be having surgery today. TPN has been running without difficulty. Labs were reviewed. Vital signs have been stable. REVIEW OF SYSTEMS: Remainder of review of systems negative for any pertinent positives and negatives. OBJECTIVE: GENERAL: Paul Shelton is a pleasant 44-year-old female. She is alert and orientated. Color pale. VITAL SIGNS: TPR at 0700 is 95.6, 47, 16, and blood pressure 102/62. HEENT: Negative. NECK: Supple. HEART: Regular rate and rhythm. LUNGS: Clear. ABDOMEN: Remains to have generalized tenderness in all 4 quadrants. EXTREMITIES: Without peripheral edema. ASSESSMENT: 1. Superior mesenteric artery syndrome and partial small bowel obstruction. 2. Cardiac irregularity. 3. Resolved severe protein malnutrition. 4. Low albumin. 5. Iron-deficiency anemia. 6. Diarrhea. 7. Status post Aaron-en-Y gastric bypass surgery. 8. Unspecified surgical malabsorption. 9. B12 deficiency. 10.Vitamin A deficiency. PLAN: Continue same TPN rate and content. Check CBC, CMP, mag, phos in a.m. Remain n.p.o. Orders will be written postoperatively. Helen Heath PA-C /[id number]
--- NOTE | 2020-06-29 10:20 | PCM.CONSN ---
- General Info Date of Service: 06/29/20 Subjective Update: Ms. Shelton has remained stable over the last 24 hours. Cardiac rhythm has been sinus with rates in the 40s and 50s, currently asymptomatic. Functional Status: Reports: Tolerating Diet, Ambulating, Urinating - Review of Systems General: Denies: Fever, Chills Pulmonary: Reports: No Symptoms Cardiovascular: Reports: No Symptoms Gastrointestinal: Reports: No Symptoms - Patient Data Vitals - Most Recent: Last Vital Signs Temp 95.6 F L 06/29/20 07:00 Pulse 47 L 06/29/20 07:00 Resp 16 06/29/20 07:00 BP 102/62 06/29/20 07:00 Pulse Ox 96 06/29/20 07:28 Weight - Most Recent: 156 lb 12.8 oz I&O - Last 24 Hours: Intake & Output 06/28/20 06/29/20 06/29/20 22:59 06:59 14:59 Intake Total 2670 2921 100 Output Total 1999 1999 Balance 670 921 100 Lab Results Last 24 Hours: Laboratory Results - last 24 hr 06/25/20 06/29/20 06/29/20 Range/Units 04:10 04:00 04:00 WBC 4.5 (4.5-11.0) K/uL RBC 3.07 L (3.30-5.50) M/uL Hgb 9.9 L (12.0-15.0) g/dL Hct 31.2 L (36.0-48.0) % MCV 102 H (80-98) fL MCH 32 H (27-31) pg MCHC 32 (32-36) % Plt Count 200 (150-400) K/uL Sodium 142 (140-148) mmol/L Potassium 4.6 (3.6-5.2) mmol/L Chloride 110 H (100-108) mmol/L Carbon Dioxide 28 (21-32) mmol/L Anion Gap 8.6 (5.0-14.0) mmol/L BUN 17 (7-18) mg/dL Creatinine 0.5 L (0.6-1.0) mg/dL Est Cr Clr Drug Dosing 134.41 mL/min Estimated GFR (MDRD) > 60 (>60) Glucose 89 (74-106) mg/dL Calcium 7.9 L (8.5-10.1) mg/dL Phosphorus 4.6 (2.5-4.9) mg/dL Magnesium 2.0 (1.8-2.4) mg/dL Total Bilirubin 0.4 (0.2-1.0) mg/dL AST 71 H (15-37) U/L ALT 131 H (12-78) U/L Alkaline Phosphatase 75 (46-116) U/L Total Protein 4.6 L (6.4-8.2) g/dL Albumin 2.8 L (3.4-5.0) g/dL Globulin 1.8 L (2.3-3.5) g/dL Albumin/Globulin Ratio 1.6 (1.2-2.2) Crossmatch See Detail Med Orders - Current: Current Medications Acetaminophen (Tylenol) 650 mg PO Q4H PRN PRN Reason: PAIN/FEVER Last Admin: 06/23/20 04:12 Dose: 650 mg Documented by: Acetaminophen (Tylenol) 650 mg RECTAL Q4H PRN PRN Reason: PAIN/FEVER Benzocaine/Menthol (Cepacol Sore Throat) 1 lozenge MUCMEM ASDIRECTED PRN PRN Reason: Sore Throat Ropivacaine 36 ml/Dexamethasone 8 mg/Epinephrine HCl 0.4 mg/ Sodium Chloride 41.6 ml 0 ml NERVRT ASDIRECTED [facility] Heparin Sodium (Porcine) (Heparin Lock Flush 100 Units/Ml) 500 units FLUSH ASDIRECTED PRN PRN Reason: IV Use Last Admin: 06/23/20 07:32 Dose: 500 units Documented by: Fat Emulsion Intravenous (Intralipid 20%) 100 mls @ 10 mls/hr IV DAILY@1800 [facility] Last Admin: 06/28/20 17:00 Dose: 10 mls/hr Documented by: Dextrose/Lactated Ringer's (Dextrose 5%-Lactated Ringers) 1,000 mls @ 40 mls/hr IV ASDIRECTED [facility] Last Admin: 06/28/20 16:58 Dose: 40 mls/hr Documented by: Multivitamins/Minerals 10 ml/Chromium/Copper/Manganese/Seleni/Zn 1 ml/ Amino Ac/Electrol/Dextrose/Calcium 1,011 mls @ 82 mls/hr IV .BY DURATION [facility] Last Admin: 06/28/20 20:29 Dose: 82 mls/hr Documented by: Amino Ac/Electrol/Dextrose/Calcium (Clinimix E 03/10) 1,000 mls @ 82 mls/hr IV .BY DURATION [facility] Last Admin: 06/29/20 08:29 Dose: 82 mls/hr Documented by: Albumin Human (Albumin 25%) 25 gm in 100 mls @ 25 mls/hr IV DAILY [facility] Stop: 06/29/20 12:59 Last Admin: 06/29/20 08:28 Dose: 25 mls/hr Documented by: Ketamine HCl 50 mg/ Sodium (Chloride) 50 mls @ 18 mls/hr IV ASDIRECTED [facility] Magnesium Sulfate 2 gm/ Sodium (Chloride) 104 mls @ 208 mls/hr IV ASDIRECTED [facility] Magnesium Sulfate 3.5 gm/ (Sodium Chloride) 257 mls @ 32.125 mls/hr IV ONETIME ONE Stop: 06/29/20 15:59 Ketamine HCl (Ketalar) 30 mg IV ASDIRECTED [facility] Non-Formulary Medication (Total Parenteral Nutrition, Central) 1,000 ml .XX .Continue Order [facility] Stop: 06/29/20 12:00 Pantoprazole Sodium (Protonix) 40 mg PO ACBREAKFAST [facility] Last Admin: 06/29/20 08:28 Dose: 40 mg Documented by: Discontinued Medications Bupivacaine HCl (Marcaine 0.5%) Confirm Administered Dose 50 ml .ROUTE .ST-MED ONE Stop: 06/22/20 06:39 Last Admin: 06/22/20 11:02 Dose: 5 ml Documented by: Bupivacaine HCl (Marcaine 0.5%) Confirm Administered Dose 50 ml .ROUTE .ST-MED ONE Stop: 06/26/20 07:03 Bupivacaine HCl (Marcaine 0.5%) Confirm Administered Dose 50 ml .ROUTE .ST-MED ONE Stop: 06/26/20 07:04 Bupivacaine HCl (Marcaine 0.5%) Confirm Administered Dose 50 ml .ROUTE .STK-MED ONE Stop: 06/29/20 06:56 Cefazolin Sodium (Ancef) Confirm Administered Dose 1 gm .ROUTE .K-MED ONE Stop: 06/22/20 11:15 Ropivacaine 35 ml/Dexamethasone 8 mg/Epinephrine HCl 0.4 mg/ Sodium Chloride 42.6 ml 0 ml NERVRT ASDIRECTED [facility] Last Admin: 06/26/20 13:20 Dose: Not Given Documented by: Dexamethasone (Dexamethasone) Confirm Administered Dose 4 mg .ROUTE .STK-MED ONE Stop: 06/26/20 08:51 Dexamethasone (Dexamethasone) Confirm Administered Dose 4 mg .ROUTE .STK-MED ONE Stop: 06/29/20 07:10 Fentanyl (Sublimaze) Confirm Administered Dose 100 mcg .ROUTE .STK-MED ONE Stop: 06/22/20 10:10 Fentanyl (Sublimaze) Confirm Administered Dose 250 mcg .ROUTE .STK-MED ONE Stop: 06/26/20 13:13 Fentanyl (Sublimaze) Confirm Administered Dose 250 mcg .ROUTE .STK-MED ONE Stop: 06/29/20 07:10 Furosemide (Lasix) 20 mg IVPUSH ONETIME ONE Stop: 06/25/20 14:01 Last Admin: 06/25/20 14:38 Dose: 20 mg Documented by: Glycopyrrolate (Robinul) Confirm Administered Dose 1 mg .ROUTE .STK-MED ONE Stop: 06/26/20 08:51 Glycopyrrolate (Robinul) Confirm Administered Dose 1 mg .ROUTE .STK-MED ONE Stop: 06/29/20 07:10 Heparin Sodium (Porcine) (Heparin Lock Flush 100 Units/Ml) Confirm Administered Dose 1,500 units .ROUTE .STK-MED ONE Stop: 06/22/20 06:39 Last Admin: 06/22/20 11:03 Dose: 1,000 units Documented by: Dextrose/Lactated Ringer's (Dextrose 5%-Lactated Ringers) 1,000 mls @ 100 mls/hr IV ASDIRECTED [facility] Stop: 06/22/20 18:00 Last Admin: 06/22/20 14:58 Dose: 100 mls/hr Documented by: Multivitamins/Minerals 10 ml/Thiamine HCl 100 mg/ Magnesium Sulfate 2 gm/ Folic Acid 1 mg / Lactated Ringer's 1,015.2 mls @ 500 mls/hr IV ONETIME ONE Stop: 06/21/20 18:01 Last Admin: 06/21/20 16:24 Dose: 500 mls/hr Documented by: Potassium Chloride 20 meq/Lidocaine HCl 2 ml/ Sodium Chloride 112 mls @ 56 mls/hr IV Q2H [facility] Stop: 06/21/20 19:59 Last Admin: 06/21/20 18:35 Dose: 56 mls/hr Documented by: Sodium Chloride (Normal Saline) 70 mls @ 3 mls/sec IV ASDIRECTED [facility] Stop: 06/21/20 14:31 Last Admin: 06/21/20 14:39 Dose: 3 mls/sec Documented by: Albumin Human (Albumin 25%) 25 gm in 100 mls @ 25 mls/hr IV Q24H [facility] Stop: 06/25/20 13:59 Last Admin: 06/25/20 12:37 Dose: 25 mls/hr Documented by: Albumin Human (Albumin 25%) 25 gm in 100 mls @ 25 mls/hr IV Q24H [facility] Stop: 06/25/20 17:59 Last Admin: 06/25/20 16:01 Dose: 25 mls/hr Documented by: Sodium Chloride (Normal Saline) Confirm Administered Dose 10 mls @ as directed .ROUTE .STK-MED ONE Stop: 06/22/20 11:15 Multivitamins/Minerals 10 ml/Chromium/Copper/Manganese/Seleni/Zn 1 ml/ Amino Ac/Electrol/Dextrose/Calcium 1,011 mls @ 100 mls/hr IV .BY DURATION [facility] Last Admin: 06/22/20 17:50 Dose: 100 mls/hr Documented by: Amino Ac/Electrol/Dextrose/Calcium (Clinimix E 5/15) 1,000 mls @ 100 mls/hr IV .BY DURATION [facility] Last Admin: 06/23/20 10:16 Dose: Not Given Documented by: Multivitamins/Minerals 10 ml/Chromium/Copper/Manganese/Seleni/Zn 1 ml/ Amino Ac/Electrol/Dextrose/Calcium 1,011 mls @ 100 mls/hr IV .BY DURATION [facility] Stop: 06/24/20 15:00 Last Admin: 06/24/20 07:21 Dose: 100 mls/hr Documented by: Amino Ac/Electrol/Dextrose/Calcium (Clinimix E 5/15) 1,000 mls @ 100 mls/hr IV .BY DURATION [facility] Stop: 06/24/20 15:00 Last Admin: 06/23/20 20:28 Dose: 100 mls/hr Documented by: Amino Ac/Electrol/Dextrose/Calcium (Clinimix E 5/15) 1,000 mls @ 100 mls/hr IV .Q10H [facility] Last Admin: 06/27/20 06:54 Dose: 100 mls/hr Documented by: Cefoxitin Sodium 2 gm/ Sodium (Chloride) 50 mls @ 100 mls/hr IV ONCALL ONE Stop: 06/26/20 10:59 Last Admin: 06/26/20 13:15 Dose: 100 mls/hr Documented by: Lactated Ringer's (Ringers, Lactated) Confirm Administered Dose 1,000 mls @ as directed .ROUTE .STK-MED ONE Stop: 06/26/20 13:50 Cefoxitin Sodium 2 gm/ Sodium (Chloride) 50 mls @ 100 mls/hr IV ONETIME ONE Stop: 06/29/20 08:29 Iopamidol (Isovue-300 (61%)) 50 ml PO ASDIRECTED ONE Stop: 06/21/20 12:44 Last Admin: 06/21/20 13:02 Dose: 50 ml Documented by: Iopamidol (Isovue-300 (61%)) 100 ml IV . DIRECTED [facility] Stop: 06/21/20 14:31 Last Admin: 06/21/20 14:39 Dose: 100 ml Documented by: Lidocaine/Epinephrine (Xylocaine 1% With Epinephrine 1:100,000) Confirm Administered Dose 50 ml .ROUTE .STK-MED ONE Stop: 06/22/20 06:40 Last Admin: 06/22/20 11:02 Dose: 5 ml Documented by: Lidocaine/Epinephrine (Xylocaine 1% With Epinephrine 1:100,000) Confirm Administered Dose 50 ml .ROUTE .STK-MED ONE Stop: 06/26/20 07:04 Lidocaine/Epinephrine (Xylocaine 1% With Epinephrine 1:100,000) Confirm Ad ministered Dose 50 ml .ROUTE .STK-MED ONE Stop: 06/29/20 06:56 Meropenem (Merrem) Confirm Administered Dose 500 mg .ROUTE .STK-MED ONE Stop: 06/26/20 07:03 Meropenem (Merrem) Confirm Administered Dose 500 mg .ROUTE .STK-MED ONE Stop: 06/26/20 08:58 Midazolam HCl (Versed 1 Mg/Ml) Confirm Administered Dose 2 mg .ROUTE .STK-MED ONE Stop: 06/22/20 10:10 Neostigmine Methylsulfate (Neostigmine) Confirm Administered Dose 5 mg .ROUTE .STK-MED ONE Stop: 06/26/20 08:51 Neostigmine Methylsulfate (Neostigmine) Confirm Administered Dose 5 mg .ROUTE .STK-MED ONE Stop: 06/29/20 07:10 Non-Formulary Medication (Total Parenteral Nutrition, Central) 1,000 ml .XX .Continue Order [facility] Stop: 06/23/20 18:00 Non-Formulary Medication (Total Parenteral Nutrition, Central) 1,000 ml .XX .Continue Order [facility] Stop: 06/28/20 14:00 Ondansetron HCl (Zofran) Confirm Administered Dose 4 mg .ROUTE .STK-MED ONE Stop: 06/26/20 08:51 Ondansetron HCl (Zofran) Confirm Administered Dose 4 mg .ROUTE .STK-MED ONE Stop: 06/29/20 07:10 Pantoprazole Sodium (Protonix Iv) 40 mg IV Q24H [facility] Last Admin: 06/22/20 15:00 Dose: 40 mg Documented by: Propofol (Diprivan 20 Ml) Confirm Administered Dose 200 mg .ROUTE .STK-MED ONE Stop: 06/22/20 10:10 Propofol (Diprivan 20 Ml) Confirm Administered Dose 200 mg .ROUTE .STK-MED ONE Stop: 06/22/20 11:14 Propofol (Diprivan 20 Ml) Confirm Administered Dose 200 mg .ROUTE .STK-MED ONE Stop: 06/29/20 07:10 Rocuronium [place] (Zemuron) Confirm Administered Dose 50 mg .ROUTE .STK-MED ONE Stop: 06/29/20 07:10 Sodium Chloride (Saline Flush) 10 ml FLUSH ONETIME ONE Stop: 06/21/20 14:18 Last Admin: 06/21/20 14:38 Dose: 10 ml Documented by: Succinylcholine Chloride (Quelicin) Confirm Administered Dose 200 mg .ROUTE .STK-MED ONE Stop: 06/29/20 07:10 Vitamin A Palmitate (Aquasol A) 100,000 unit IM DAILY [facility] Stop: 06/27/20 09:01 Last Admin: 06/27/20 08:35 Dose: 100,000 unit Documented by: - Exam General: Alert, Oriented, Cooperative, No Acute Distress Lungs: Clear to Auscultation, Normal Respiratory Effort Cardiovascular: Regular Rate, Regular Rhythm, No Murmurs GI/Abdominal Exam: Soft, Non-Tender, No Organomegaly, No Distention Extremities: Non-Tender, No Pedal Edema Sepsis Event Note - Evaluation Sepsis Screening Result: No Definite Risk - Focused Exam Vital Signs: Vital Signs Temp Pulse Resp BP Pulse Ox 06/29/20 07:28 96 06/29/20 07:00 95.6 F L 47 L 16 102/62 98 06/29/20 03:13 96.4 F L 51 L 16 101/58 L 97 06/28/20 22:30 96.3 F L 56 L 18 103/60 98 Consult PN Assessment/Plan Problem List Initiated/Reviewed/Updated: Yes My Orders Last 24 Hours: My Active Orders 06/29/20 10:18 Discontinue Telemetry Monitoring [Cardiac Monitoring Discontinue] [RC] Click to Edit Plan: ASSESSMENT AND RECOMMENDATIONS BRADYCARDIA-she has remained in sinus rhythm, often bradycardic. No further evidence of junctional rhythm or severe bradycardia. 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 Kilgore -Postoperative care per Dr. Kilgore
[2020-06-29] MEDS ORDERED: Lactated Ringers 1,000 ML ONE (13:06)
[2020-06-29] MEDS ORDERED: Meropenem 500 MG SDV ONE (13:51)
[2020-06-29] MEDS ORDERED: HYDROmorphone/Normal Saline 15 MG/30 ML PCA IV PRN (14:47)
[2020-06-29] MEDS ORDERED: Naloxone 0.4 MG/ML SDV IVPUSH PRN (14:47)
[2020-06-29] MEDS ORDERED: Cyclobenzaprine 10 MG Tab PO PRN (15:09)
[2020-06-29] MEDS ORDERED: Benzocaine/Cetylpyridinium/Menthol Lozenge MUCMEM PRN (15:13)
[2020-06-29] MEDS ORDERED: Scopolamine 1.5 MG Transdermal Patch TOP PRN (15:14)
[2020-06-29] MEDS ORDERED: Dextrose 5%-Lactated Ringers 1,000 ML IV SCH (15:15)
[2020-06-29] MEDS ORDERED: Calcium Gluconate 10% 1 GM/10 ML SDV IVPUSH PRN (16:00)
[2020-06-29] MEDS ORDERED: Acetaminophen 500 MG Tab PO PRN (16:00)
[2020-06-29] MEDS ORDERED: hydrOXYzine HCL 100 MG/2 ML SDV IM PRN (16:00)
[2020-06-29] MEDS ORDERED: Labetalol 20 MG/4 ML Syringe IVPUSH PRN (16:00)
[2020-06-29] MEDS ORDERED: diphenhydrAMINE 50 MG/ML SDV IVPUSH PRN (16:00)
[2020-06-29] MEDS ORDERED: Naloxone 0.4 MG/ML SDV IV PRN (16:00)
[2020-06-29] MEDS ORDERED: Metoclopramide 10 MG/2 ML SDV IVPUSH PRN (16:00)
[2020-06-29] MEDS ORDERED: Ondansetron 4 MG/2 ML SDV IVPUSH PRN (16:00)
[2020-06-29] MEDS: cefOXitin 2 GM in Sodium Chloride 0.9% 50 ML IV SCH (17:07)
[2020-06-29] MEDS: Acetaminophen 500 MG Tab PO SCH (17:08)
[2020-06-29] MEDS: Fat Emulsion 100 ML IV SCH (17:08)
[2020-06-29] MEDS ORDERED: Pantoprazole 40 MG Vial IVPUSH SCH (18:00)
[2020-06-29] MEDS: Heparin Sodium 5,000 Units/ML Vial SUBCUT SCH (19:46)
[2020-06-29] MEDS: Celecoxib 200 MG Cap PO SCH (21:28)
[2020-06-30] MEDS: cefOXitin 2 GM in Sodium Chloride 0.9% 50 ML IV SCH ×5 (00:14→23:36)
[2020-06-30] MEDS: Acetaminophen 500 MG Tab PO SCH ×3 (02:51→17:26)
[2020-06-30] MEDS ORDERED: Iopamidol 612 MG/ML 50 ML SDV PO STA (02:55)
[2020-06-30] MEDS: 1: AA 5%/Calcium/D15W/Lytes 1,000 ML with MVI, Adult with Vitamin K 10 ML, Chromium/Copp IV SCH ×6 (08:40→20:50)
[2020-06-30] MEDS: Celecoxib 200 MG Cap PO SCH ×2 (08:41→20:56)
[2020-06-30] MEDS: Heparin Sodium 5,000 Units/ML Vial SUBCUT SCH ×2 (08:41→20:52)
[2020-06-30] MEDS ORDERED: Dextrose 5%-Lactated Ringers 1,000 ML IV SCH (09:00)
--- NOTE | 2020-06-30 09:25 | CR ---
[facility] [employer] HISTORY: Postbariatric surgery FINDINGS: Patient swallowed water-soluble contrast. Upright views of the abdomen show no evidence of extravasation or obstruction. IMPRESSION: Status post bariatric surgery No extravasation or obstruction seen
[2020-06-30] MEDS ORDERED: Furosemide 20 MG/2 ML VIAL IV ONE (09:30)
[2020-06-30] MEDS: oxyCODONE 5 MG Tab PO PRN ×4 (09:56→23:40)
[2020-06-30] MEDS: Bisacodyl 5 MG Tab PO SCH ×2 (09:56→20:57)
[2020-06-30] MEDS: Docusate Sodium 100 MG Cap PO SCH ×2 (09:56→20:56)
--- NOTE | 2020-06-30 10:13 | PCM.CONSN ---
- General Info Date of Service: 06/30/20 Subjective Update: Ms. Shelton is status post exploratory laparotomy done yesterday by Dr. Kilgore. She has remained hemodynamically stable and although heart rate is been slow she is remained asymptomatic. There was no further evidence of severe bradycardia noted with surgery. Functional Status: Reports: Tolerating Diet - Review of Systems Pulmonary: Reports: No Symptoms Cardiovascular: Reports: No Symptoms Gastrointestinal: Reports: Abdominal Pain. Denies: Difficulty Swallowing, Nausea, Vomiting - Patient Data Vitals - Most Recent: Last Vital Signs Temp 97.4 F 06/30/20 08:38 Pulse 50 L 06/30/20 08:38 Resp 18 06/30/20 08:38 BP 99/60 06/30/20 08:38 Pulse Ox 99 06/30/20 08:38 Weight - Most Recent: 160 lb I&O - Last 24 Hours: Intake & Output 06/29/20 06/30/20 06/30/20 22:59 06:59 14:59 Intake Total 350 1911 Output Total 1700 2200 350 Balance -1350 -289 -350 Lab Results Last 24 Hours: Laboratory Results - last 24 hr 06/30/20 06/30/20 Range/Units 03:17 03:17 WBC 8.3 (4.5-11.0) K/uL RBC 3.36 (3.30-5.50) M/uL Hgb 10.8 L (12.0-15.0) g/dL Hct 33.9 L (36.0-48.0) % MCV 101 H (80-98) fL MCH 32 H (27-31) pg MCHC 32 (32-36) % Plt Count 228 (150-400) K/uL Sodium 137 L (140-148) mmol/L Potassium 5.7 H (3.6-5.2) mmol/L Chloride 104 (100-108) mmol/L Carbon Dioxide 31 (21-32) mmol/L Anion Gap 7.7 (5.0-14.0) mmol/L BUN 13 (7-18) mg/dL Creatinine 0.8 D (0.6-1.0) mg/dL Est Cr Clr Drug Dosing 84.01 mL/min Estimated GFR (MDRD) > 60 (>60) Glucose 155 H (74-106) mg/dL Calcium 8.2 L (8.5-10.1) mg/dL Phosphorus 4.3 (2.5-4.9) mg/dL Magnesium 2.5 H (1.8-2.4) mg/dL Total Bilirubin 0.6 (0.2-1.0) mg/dL AST 88 H (15-37) U/L ALT 158 H (12-78) U/L Alkaline Phosphatase 104 (46-116) U/L NT-Pro-B Natriuret Pep 161 H (5-125) pg/mL Total Protein 5.5 L (6.4-8.2) g/dL Albumin 3.1 L (3.4-5.0) g/dL Globulin 2.4 (2.3-3.5) g/dL Albumin/Globulin Ratio 1.3 (1.2-2.2) Med Orders - Current: Current Medications Acetaminophen (Tylenol Extra Strength) 1,000 mg PO Q8H [facility] Last Admin: 06/30/20 09:56 Dose: 1,000 mg Documented by: Acetaminophen (Tylenol Extra Strength) 500 mg PO Q8H PRN PRN Reason: MILD PAIN Benzocaine/Menthol (Cepacol Sore Throat) 1 lozenge MUCMEM ASDIRECTED PRN PRN Reason: Sore Throat Bisacodyl (Dulcolax) 10 mg PO BID [facility] Last Admin: 06/30/20 09:56 Dose: 10 mg Documented by: Celecoxib (Celebrex) 200 mg PO BID [facility] Last Admin: 06/30/20 08:41 Dose: 200 mg Documented by: Cyanocobalamin (Vitamin B12) 1,000 mcg IM ONETIME ONE Stop: 07/01/20 09:01 Cyclobenzaprine HCl (Flexeril) 10 mg PO Q8H PRN PRN Reason: Muscle Spasm Diphenhydramine HCl (Benadryl) 50 mg IVPUSH Q4H PRN PRN Reason: ITCHING Docusate Sodium (Colace) 100 mg PO BID [facility] Last Admin: 06/30/20 09:56 Dose: 100 mg Documented by: Heparin Sodium (Porcine) (Heparin Lock Flush 100 Units/Ml) 500 units FLUSH ASDIRECTED PRN PRN Reason: IV Use Last Admin: 06/23/20 07:32 Dose: 500 units Documented by: Heparin Sodium (Porcine) (Heparin Sodium) 5,000 units SUBCUT Q12H [facility] Last Admin: 06/30/20 08:41 Dose: 5,000 units Documented by: Hydroxyzine HCl (Vistaril) 100 mg IM Q4H PRN PRN Reason: pain Fat Emulsion Intravenous (Intralipid 20%) 100 mls @ 10 mls/hr IV DAILY@1800 [facility] Last Admin: 06/29/20 17:08 Dose: 10 mls/hr Documented by: Multivitamins/Minerals 10 ml/Chromium/Copper/Manganese/Seleni/Zn 1 ml/ Amino Ac/Electrol/Dextrose/Calcium 1,011 mls @ 82 mls/hr IV .BY DURATION [facility] Last Admin: 06/29/20 20:35 Dose: 82 mls/hr Documented by: Amino Ac/Electrol/Dextrose/Calcium (Clinimix E 5/15) 1,000 mls @ 82 mls/hr IV .BY DURATION [facility] Last Admin: 06/30/20 08:40 Dose: 82 mls/hr Documented by: Cefoxitin Sodium 2 gm/ Sodium (Chloride) 50 mls @ 100 mls/hr IV Q6H [facility] Stop: 07/01/20 00:29 Last Admin: 06/30/20 05:28 Dose: 100 mls/hr Documented by: Dextrose/Lactated Ringer's (Dextrose 5%-Lactated Ringers) 1,000 mls @ 25 mls/hr IV ASDIRECTED [facility] Labetalol HCl (Normodyne) 5 mg IVPUSH Q5M PRN PRN Reason: SBP over 160 OR DBP over 95 Metoclopramide HCl (Reglan) 10 mg IVPUSH Q6H PRN PRN Reason: NAUSEA NOT CONTROL BY ZOFRAN Naloxone HCl (Narcan) 0.1 mg IV ASDIRECTED PRN PRN Reason: decreased respiratory rate Ondansetron HCl (Zofran) 4 mg IVPUSH Q4H PRN PRN Reason: Nausea/Vomiting Oxycodone HCl (Oxycodone) 5 mg PO Q4H PRN PRN Reason: PAIN Last Admin: 06/30/20 09:56 Dose: 5 mg Documented by: Pantoprazole Sodium (Protonix Granules) 40 mg PO Q24H [facility] Scopolamine (Transderm-Scop) 1.5 mg TOP Q72H PRN PRN Reason: * Vitamin A (Vitamin A) 50,000 units PO DAILY [facility] Discontinued Medications Acetaminophen (Tylenol) 650 mg PO Q4H PRN PRN Reason: PAIN/FEVER Last Admin: 06/23/20 04:12 Dose: 650 mg Documented by: Acetaminophen (Tylenol) 650 mg RECTAL Q4H PRN PRN Reason: PAIN/FEVER Benzocaine/Menthol (Cepacol Sore Throat) 1 lozenge MUCMEM ASDIRECTED PRN PRN Reason: Sore Throat Bupivacaine HCl (Marcaine 0.5%) Confirm Administered Dose 50 ml .ROUTE .STK-MED ONE Stop: 06/22/20 06:39 Last Admin: 06/22/20 11:02 Dose: 5 ml Documented by: Bupivacaine HCl (Marcaine 0.5%) Confirm Administered Dose 50 ml .ROUTE .STK-MED ONE Stop: 06/26/20 07:03 Bupivacaine HCl (Marcaine 0.5%) Confirm Administered Dose 50 ml .ROUTE .STK-MED ONE Stop: 06/26/20 07:04 Bupivacaine HCl (Marcaine 0.5%) Confirm Administered Dose 50 ml .ROUTE .STK-MED ONE Stop: 06/29/20 06:56 Calcium Gluconate (Calcium Gluconate) 1 gm IVPUSH ONETIME PRN PRN Reason: SX MAGNESIUM TOXICITY Stop: 06/29/20 23:59 Cefazolin Sodium (Ancef) Confirm Administered Dose 1 gm .ROUTE .STK-MED ONE Stop: 06/22/20 11:15 Ropivacaine 35 ml/Dexamethasone 8 mg/Epinephrine HCl 0.4 mg/ Sodium Chloride 42.6 ml 0 ml NERVRT ASDIRECTED [facility] Last Admin: 06/26/20 13:20 Dose: Not Given Documented by: Ropivacaine 36 ml/Dexamethasone 8 mg/Epinephrine HCl 0.4 mg/ Sodium Chloride 41.6 ml 0 ml NERVRT ASDIRECTED [facility] Last Admin: 06/29/20 14:25 Dose: 80 syringe Documented by: Dexamethasone (Dexamethasone) Confirm Administered Dose 4 mg .ROUTE .STK-MED ONE Stop: 06/26/20 08:51 Dexamethasone (Dexamethasone) Confirm Administered Dose 4 mg .ROUTE .STK-MED ONE Stop: 06/29/20 07:10 Fentanyl (Sublimaze) Confirm Administered Dose 100 mcg .ROUTE .STK-MED ONE Stop: 06/22/20 10:10 Fentanyl (Sublimaze) Confirm Administered Dose 250 mcg .ROUTE .[facility]-MED ONE Stop: 06/26/20 13:13 Fentanyl (Sublimaze) Confirm Administered Dose 250 mcg .ROUTE .[facility]-MED ONE Stop: 06/29/20 07:10 Fentanyl (Sublimaze) Confirm Administered Dose 250 mcg .ROUTE .[facility]-MED ONE Stop: 06/29/20 13:25 Furosemide (Lasix) 20 mg IVPUSH ONETIME ONE Stop: 06/25/20 14:01 Last Admin: 06/25/20 14:38 Dose: 20 mg Documented by: Furosemide (Lasix) 20 mg IV ONETIME ONE Stop: 06/30/20 09:31 Last Admin: 06/30/20 09:56 Dose: 20 mg Documented by: Glycopyrrolate (Robinul) Confirm Administered Dose 1 mg .ROUTE .K-MED ONE Stop: 06/26/20 08:51 Glycopyrrolate (Robinul) Confirm Administered Dose 1 mg .ROUTE .[facility] ONE Stop: 06/29/20 07:10 Heparin Sodium (Porcine) (Heparin Lock Flush 100 Units/Ml) Confirm Administered Dose 1,500 units .ROUTE .[facility]-MED ONE Stop: 06/22/20 06:39 Last Admin: 06/22/20 11:03 Dose: 1,000 units Documented by: Heparin Sodium (Porcine) (Heparin Lock Flush 100 Units/Ml) Confirm Administered Dose 500 units .ROUTE .[facility]-MED ONE Stop: 06/29/20 12:56 Last Admin: 06/29/20 12:56 Dose: 500 units Documented by: Hydromorphone HCl (Dilaudid [employer] 15 Mg In Ns 30 Ml) 0 mg IV ASDIRECTED PRN; Protocol PRN Reason: Pain Last Admin: 06/29/20 15:00 Dose: 0.3 mg Documented by: Dextrose/Lactated Ringer's (Dextrose 5%-Lactated Ringers) 1,000 mls @ 100 mls/hr IV ASDIRECTED [facility] Stop: 06/22/20 18:00 Last Admin: 06/22/20 14:58 Dose: 100 mls/hr Documented by: Multivitamins/Minerals 10 ml/Thiamine HCl 100 mg/ Magnesium Sulfate 2 gm/ Folic Acid 1 mg / Lactated Ringer's 1,015.2 mls @ 500 mls/hr IV ONETIME ONE Stop: 06/21/20 18:01 Last Admin: 06/21/20 16:24 Dose: 500 mls/hr Documented by: Potassium Chloride 20 meq/Lidocaine HCl 2 ml/ Sodium Chloride 112 mls @ 56 mls/hr IV Q2H [facility] Stop: 06/21/20 19:59 Last Admin: 06/21/20 18:35 Dose: 56 mls/hr Documented by: Sodium Chloride (Normal Saline) 70 mls @ 3 mls/sec IV ASDIRECTED [facility] Stop: 06/21/20 14:31 Last Admin: 06/21/20 14:39 Dose: 3 mls/sec Documented by: Albumin Human (Albumin 25%) 25 gm in 100 mls @ 25 mls/hr IV Q24H [facility] Stop: 06/25/20 13:59 Last Admin: 06/25/20 12:37 Dose: 25 mls/hr Documented by: Albumin Human (Albumin 25%) 25 gm in 100 mls @ 25 mls/hr IV Q24H [facility] Stop: 06/25/20 17:59 Last Admin: 06/25/20 16:01 Dose: 25 mls/hr Documented by: Sodium Chloride (Normal Saline) Confirm Administered Dose 10 mls @ as directed .ROUTE .STK-MED ONE Stop: 06/22/20 11:15 Multivitamins/Minerals 10 ml/Chromium/Copper/Manganese/Seleni/Zn 1 ml/ Amino Ac/Electrol/Dextrose/Calcium 1,011 mls @ 100 mls/hr IV .BY DURATION [facility] Last Admin: 06/22/20 17:50 Dose: 100 mls/hr Documented by: Amino Ac/Electrol/Dextrose/Calcium (Clinimix E 5/15) 1,000 mls @ 100 mls/hr IV .BY DURATION [facility] Last Admin: 06/23/20 10:16 Dose: Not Given Documented by: Dextrose/Lactated Ringer's (Dextrose 5%-Lactated Ringers) 1,000 mls @ 40 mls/hr IV ASDIRECTED [facility] Last Admin: 06/28/20 16:58 Dose: 40 mls/hr Documented by: Multivitamins/Minerals 10 ml/Chromium/Copper/Manganese/Seleni/Zn 1 ml/ Amino Ac/Electrol/Dextrose/Calcium 1,011 mls @ 100 mls/hr IV .BY DURATION [facility] Stop: 06/24/20 15:00 Last Admin: 06/24/20 07:21 Dose: 100 mls/hr Documented by: Amino Ac/Electrol/Dextrose/Calcium (Clinimix E 5/15) 1,000 mls @ 100 mls/hr IV .BY DURATION [facility] Stop: 06/24/20 15:00 Last Admin: 06/23/20 20:28 Dose: 100 mls/hr Documented by: Amino Ac/Electrol/Dextrose/Calcium (Clinimix E 5/15) 1,000 mls @ 100 mls/hr IV .Q10H [facility] Last Admin: 06/27/20 06:54 Dose: 100 mls/hr Documented by: Cefoxitin Sodium 2 gm/ Sodium (Chloride) 50 mls @ 100 mls/hr IV ONCALL ONE Stop: 06/26/20 10:59 Last Admin: 06/26/20 13:15 Dose: 100 mls/hr Documented by: Lactated Ringer's (Ringers, Lactated) Confirm Administered Dose 1,000 mls @ as directed .ROUTE .STK-MED ONE Stop: 06/26/20 13:50 Albumin Human (Albumin 25%) 25 gm in 100 mls @ 25 mls/hr IV DAILY [facility] Stop: 06/29/20 12:59 Last Admin: 06/29/20 08:28 Dose: 25 mls/hr Documented by: Cefoxitin Sodium 2 gm/ Sodium (Chloride) 50 mls @ 100 mls/hr IV ONETIME ONE Stop: 06/29/20 08:29 Last Admin: 06/29/20 12:25 Dose: 100 mls/hr Documented by: Ketamine HCl 50 mg/ Sodium (Chloride) 50 mls @ 18 mls/hr IV ASDIRECTED [facility] Magnesium Sulfate 2 gm/ Sodium (Chloride) 104 mls @ 208 mls/hr IV ASDIRECTED [facility] Magnesium Sulfate 3.5 gm/ (Sodium Chloride) 257 mls @ 32.125 mls/hr IV ONETIME ONE Stop: 06/29/20 15:59 Last Admin: 06/29/20 15:35 Dose: 32.125 mls/hr Documented by: Lactated Ringer's (Ringers, Lactated) Confirm Administered Dose 1,000 mls @ as directed .ROUTE .STK-MED ONE Stop: 06/29/20 13:07 Dextrose/Lactated Ringer's (Dextrose 5%-Lactated Ringers) 1,000 mls @ 50 mls/hr IV ASDIRECTED [facility] Last Admin: 06/29/20 17:07 Dose: 50 mls/hr Documented by: Iopamidol (Isovue-300 (61%)) 50 ml PO ASDIRECTED ONE Stop: 06/21/20 12:44 Last Admin: 06/21/20 13:02 Dose: 50 ml Documented by: Iopamidol (Isovue-300 (61%)) 100 ml IV . DIRECTED [facility] Stop: 06/21/20 14:31 Last Admin: 06/21/20 14:39 Dose: 100 ml Documented by: Iopamidol (Isovue-300 (61%)) 50 ml PO ASDIRECTED [facility] Stop: 06/30/20 02:56 Last Admin: 06/30/20 03:05 Dose: 50 ml Documented by: Ketamine HCl (Ketalar) 30 mg IV ASDIRECTED [facility] Lidocaine/Epinephrine (Xylocaine 1% With Epinephrine 1:100,000) Confirm Administered Dose 50 ml .ROUTE .STK-MED ONE Stop: 06/22/20 06:40 Last Admin: 06/22/20 11:02 Dose: 5 ml Documented by: Lidocaine/Epinephrine (Xylocaine 1% With Epinephrine 1:100,000) Confirm Administered Dose 50 ml .ROUTE .STK-MED ONE Stop: 06/26/20 07:04 Lidocaine/Epinephrine (Xylocaine 1% With Epinephrine 1:100,000) Confirm Administered Dose 50 ml .ROUTE .STK-MED ONE Stop: 06/29/20 06:56 Meropenem (Merrem) Confirm Administered Dose 500 mg .ROUTE .STK-MED ONE Stop: 06/26/20 07:03 Meropenem (Merrem) Confirm Administered Dose 500 mg .ROUTE .STK-MED ONE Stop: 06/26/20 08:58 Meropenem (Merrem) Confirm Administered Dose 500 mg .ROUTE .STK-MED ONE Stop: 06/29/20 13:52 Last Admin: 06/29/20 13:55 Dose: 500 mg Documented by: Midazolam HCl (Versed 1 Mg/Ml) Confirm Administered Dose 2 mg .ROUTE .STK-MED ONE Stop: 06/22/20 10:10 Naloxone HCl (Narcan) 0.1 mg IVPUSH Q2M PRN PRN Reason: Respiratory Distress Neostigmine Methylsulfate (Neostigmine) Confirm Administered Dose 5 mg .ROUTE .STK-MED ONE Stop: 06/26/20 08:51 Neostigmine Methylsulfate (Neostigmine) Confirm Administered Dose 5 mg .ROUTE .STK-MED ONE Stop: 06/29/20 07:10 Non-Formulary Medication (Total Parenteral Nutrition, Central) 1,000 ml .XX .Continue Order [facility] Stop: 06/23/20 18:00 Non-Formulary Medication (Total Parenteral Nutrition, Central) 1,000 ml .XX .Continue Order [facility] Stop: 06/28/20 14:00 Non-Formulary Medication (Total Parenteral Nutrition, Central) 1,000 ml .XX .Continue Order [facility] Stop: 06/29/20 12:00 Ondansetron HCl (Zofran) Confirm Administered Dose 4 mg .ROUTE .STK-MED ONE Stop: 06/26/20 08:51 Ondansetron HCl (Zofran) Confirm Administered Dose 4 mg .ROUTE .STK-MED ONE Stop: 06/29/20 07:10 Pantoprazole Sodium (Protonix Iv) 40 mg IV Q24H [facility] Last Admin: 06/22/20 15:00 Dose: 40 mg Documented by: Pantoprazole Sodium (Protonix) 40 mg PO ACBREAKFAST [facility] Last Admin: 06/29/20 08:28 Dose: 40 mg Documented by: Pantoprazole Sodium (Protonix Iv) 40 mg IVPUSH Q24H [facility] Last Admin: 06/29/20 17:08 Dose: 40 mg Documented by: Propofol (Diprivan 20 Ml) Confirm Administered Dose 200 mg .ROUTE .STK-MED ONE Stop: 06/22/20 10:10 Propofol (Diprivan 20 Ml) Confirm Administered Dose 200 mg .ROUTE .STK-MED ONE Stop: 06/22/20 11:14 Propofol (Diprivan 20 Ml) Confirm Administered Dose 200 mg .ROUTE .STK-MED ONE Stop: 06/29/20 07:10 Rocuronium Harris (Zemuron) Confirm Administered Dose 50 mg .ROUTE .STK-MED ONE Stop: 06/29/20 07:10 Sodium Chloride (Saline Flush) 10 ml FLUSH ONETIME ONE Stop: 06/21/20 14:18 Last Admin: 06/21/20 14:38 Dose: 10 ml Documented by: Succinylcholine Chloride (Quelicin) Confirm Administered Dose 200 mg .ROUTE .STK-MED ONE Stop: 06/29/20 07:10 Vitamin A Palmitate (Aquasol A) 100,000 unit IM DAILY [facility] Stop: 06/27/20 09:01 Last Admin: 06/27/20 08:35 Dose: 100,000 unit Documented by: - Exam Quality Assessment: DVT Prophylaxis General: Alert, Oriented, Cooperative, Moderate Distress Lungs: Clear to Auscultation, Normal Respiratory Effort Cardiovascular: Regular Rhythm, No Murmurs, Bradycardia Back Exam: Normal Inspection Extremities: Non-Tender, No Pedal Edema Sepsis Event Note - Evaluation Sepsis Screening Result: No Definite Risk - Focused Exam Vital Signs: Vital Signs Temp Pulse Pulse Resp BP BP Pulse Ox 06/30/20 08:38 97.4 F 50 L 18 99/60 99 06/30/20 07:43 97.6 F 48 L 16 97/63 96 06/30/20 07:25 95 06/30/20 03:00 96.4 F L 47 L 16 107/68 97 06/30/20 01:00 95 06/29/20 23:09 96.4 F L 46 L 16 98/61 96 Consult PN Assessment/Plan Problem List Initiated/Reviewed/Updated: Yes Plan: ASSESSMENT AND RECOMMENDATIONS BRADYCARDIA-she has remained in sinus rhythm, often bradycardic. No further evidence of junctional rhythm or severe bradycardia. 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 Kiglore Ms. Shelton has been stable concerning her bradycardia, hospitalist service will sign off at this time. Please feel free to reconsult if we can be of further assistance in medical management during her hospital stay.
--- NOTE | 2020-06-30 10:25 | PN ---
DATE OF SERVICE: 06/30/2020 The patient is postoperative day #1 from an exploratory laparotomy with a Aaron-en-Y drainage of the duodenum above right point of superior mesenteric artery syndrome type narrowing. She also had a significant area of small bowel volvulus which was retracted and revision of the jejunojejunostomy. Upper GI x-ray looks good this morning. She is feeling fairly good. We will go up to a step 2 diet today, switch over to oral pain medication, and she might be ready for discharge home tomorrow. We will keep the TPN going at 82 mL an hour for today. If she does go home, she should have the TPN turned down to 40 mL an hour for a few hours. Her IM vitamin course is completed, we will start the 50,000 units of vitamin A orally today, which she will go home with additional 14 days. Francisco Javier Kilgore MD /[id number]
[2020-06-30] MEDS: Vitamin A 10,000 Unit Cap PO SCH (11:38)
--- NOTE | 2020-06-30 16:17 | PN ---
DATE OF SERVICE: 06/27/2020 The patient's surgery was postponed yesterday due to the patient noted to have apparently sinus node dysfunction. This is being worked up per Dr. Rai. She is going to have an echocardiogram today. Otherwise, her potassium and CO2 are a little high on the TPN and we did some adjustments there, back down on TPN albumin infusions. If she is cleared for surgery, we will arrange for the procedure on this coming 48 hours. Francisco Javier Kilgore MD /[id number]
[2020-06-30] MEDS ORDERED: Pantoprazole 40 MG Delayed-Release Granules 1 Packet PO SCH (17:00)
[2020-06-30] MEDS: Fat Emulsion 100 ML IV SCH (17:25)
[2020-07-01] MEDS: Acetaminophen 500 MG Tab PO SCH ×2 (02:53→10:19)
[2020-07-01] MEDS: oxyCODONE 5 MG Tab PO PRN ×2 (04:47→13:10)
[2020-07-01] MEDS: Heparin Sodium 5,000 Units/ML Vial SUBCUT SCH (07:47)
[2020-07-01] MEDS: Bisacodyl 5 MG Tab PO SCH (08:50)
[2020-07-01] MEDS: Celecoxib 200 MG Cap PO SCH (08:50)
[2020-07-01] MEDS: Docusate Sodium 100 MG Cap PO SCH (08:50)
[2020-07-01] MEDS: Vitamin A 10,000 Unit Cap PO SCH (08:50)
[2020-07-01] MEDS ORDERED: Cyanocobalamin (Vitamin B12) 1,000 MCG/ML SDV IM ONE (09:00)
[2020-07-01] MEDS: 1: AA 5%/Calcium/D15W/Lytes 1,000 ML with MVI, Adult with Vitamin K 10 ML, Chromium/Copp IV SCH ×3 (13:11)
--- NOTE | 2020-07-02 17:27 | CONS ---
DATE OF SERVICE: 07/01/2020 REFERRING PHYSICIAN: CONSULTING PHYSICIAN: Chon Ding MD REASON FOR CONSULTATION: HISTORY: This is a pleasant female who underwent an exploratory laparotomy, small bowel resection due to SMA syndrome on 06/29/2020. She is also on TPN for malnutrition. Her pain currently is 1 to 2/10 and is controlled. PAST MEDICAL HISTORY: History of bradycardia, chronic diarrhea, history of Aaron-en-Y, gallbladder removal, abdominal hernia repair, active smoking. REVIEW OF SYSTEMS: HEENT: No symptoms. GENERAL: The patient is resting comfortably. CARDIOVASCULAR: No chest pain. RESPIRATORY: No shortness of breath. GASTROINTESTINAL: She is having bowel movements. GENITOURINARY: No dysuria. NEUROLOGICAL: No symptoms. PSYCHIATRIC: No depression. Remainder of review of systems was reviewed and is negative. SOCIAL HISTORY: She is a smoker. FAMILY HISTORY: Noncontributory. PHYSICAL EXAMINATION: VITAL SIGNS: Temperature 96.3, blood pressure 125/68, pulse 49, respirations 16, 96% on room air. HEENT: Pupils are equal. NECK: Supple. LUNGS: Clear. CARDIOVASCULAR: Regular rhythm and rate. Incision healing well. EXTREMITIES: Full range of motion. NEUROLOGIC: Oriented x3. PSYCHIATRIC: No gross depression. IMAGING DATA: I did review an upper GI performed on 06/30/2020 which showed no abnormalities. ASSESSMENT: Status post small bowel resection due to superior mesenteric artery syndrome. PLAN: The patient will be discharged today. Please see discharge summary and orders for further details. Chon Ding MD /[id number] MTDD
--- NOTE | 2020-07-04 11:27 | OR ---
DATE OF PROCEDURE: 06/29/2020 SURGEON: Francisco Javier Kilgore MD PREOPERATIVE DIAGNOSES: 1. Partial small bowel obstruction. 2. Vascular compression of the duodenum (superior mesenteric artery syndrome). POSTOPERATIVE DIAGNOSES: 1. Partial small bowel obstruction secondary to small bowel volvulus. 2. 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 3. Vascular compression of the duodenum (superior mesenteric artery syndrome). 4. Extensive intraabdominal adhesions. OPERATIVE PROCEDURES: Exploratory laparotomy with lysis of adhesions and: 1. Reduction of small bowel volvulus, closure of internal hernia (03634). 2. Small bowel resection (84900). 3. Small bowel stricturoplasty (21643). 4. Aaron-en-Y duodenojejunostomy (53732). 5. Lysis of duodenal bands for mobilization of partially obstructed duodenum (96036). 6. Placement of Interceed mesh to limit recurrent adhesion formation between pelvic and abdominal wall and underlying viscera (31241). ANESTHESIA: General. MUTUEL CASHIER: Helen Heath PA-C INDICATIONS FOR PROCEDURE: This is a 44-year-old female presenting with what appears to be a partial small bowel obstruction. As a result, the patient developed severe malnutrition and was admitted earlier for initiation of TPN, and she now appears to be improved in that regard enough to undergo a laparotomy and significant abdominal procedure. The patient was also noted on the preoperative imaging to have a tight angle between the superior mesenteric artery and the aorta, causing a visible compression of the duodenum at that level with the more proximal duodenum being quite significantly dilated, all consistent with a superior mesenteric artery syndrome. Plan is to proceed with exploratory laparotomy with lysis of adhesions and reduction of areas of small bowel volvulus or other points of obstruction, possible bowel resection. In addition to that, we will construct a Aaron-en-Y duodenojejunostomy, an integral part of correction of superior mesenteric artery syndrome. There is also lysis of the duodenal ([place]'s) bands which allows mobilization of the duodenum downward away from the triangle between the aorta and superior mesenteric artery. Potential risks of the procedure including bleeding, infection, leaks from any GI tract closures, problems with further bowel obstruction over time were all reviewed, and the patient wishes to proceed. DETAILS OF PROCEDURE: The patient was taken to the operating room, and after general endotracheal anesthesia was induced, a Woody catheter was inserted, and the abdomen prepped and draped. A midline incision from the xiphoid to the umbilicus was then made and carried down through the skin and subcutaneous tissue into the peritoneal cavity. Upon entering the peritoneal cavity, quite a bit in the way of adhesions were encountered. These were gradually taken down. The patient was noted to have a focal small bowel volvulus where the jejunojejunostomy and portions of the attached bowel had rotated in a plane behind the Aaron limb. This was reduced and the mesenteric defect then closed with a 2-0 silk stitch. The patient was noted to have a stricture at the previous jejunojejunostomy at this point. This was corrected by means of opening the bowel just proximal to the anastomosis in the Aaron limb and then stapling across that area as it entered the jejunojejunostomy. This created a wide opening and more of a straightforward entrance of the Aaron limb into that area. Common opening was then closed with SERA purple load. Roughly 20 cm proximal to the jejunojejunostomy, the Aaron limb was then divided. This allowed this to be brought up through an opening made in the avascular portion of the transverse mesocolon. This then came up to the junction of the 2nd and 3rd portions of the duodenum without tension. A segment of this was then resected, which had become ischemic due to the mobilization process. At that point, the ligament of Treitz was divided and then the bands over the duodenum were divided with a combination of blunt and cautery dissection, which allowed visible release of the duodenum entering in a downward direction at the level where it passed between the superior mesenteric artery and aorta. Once this phase was corrected, then an enterotomy was placed in the mid second portion of the duodenum and the end of the Aaron limb, which was brought up and fixed initially with suture to the duodenum. A 60 mm internal firing of the SERA noriega load was then undertaken. Common opening was closed with a purple load. Angles of anastomosis were reinforced with some 3-0 Vicryl stitch. There appeared to be a sound opening between the duodenum and the Aaron limb and jejunum. The point where the Aaron limb passed through the transverse mesocolon was then reinforced with some 3-0 Vicryl stitch to try to prevent internal herniation at that level. Small bowel continuity was then established with the remaining ends of the previously made Aaron limb anastomosed to the point roughly 20 cm distal to the original jejunojejunostomy. Then, sequence of singh were used for the duodenojejunostomy. The angles of anastomosis were then likewise reinforced with 3-0 Vicryl stitch and, in this case, the mesenteric defect closed with a 2-0 silk stitch. At this point, no further problems were noted. The abdomen was irrigated with antibiotic-containing saline solution. Interceed mesh was then placed underneath the incision from there down towards the pelvis to limit recurrent adhesion formation between pelvis and abdominal wall. The midline fascia was then approximated with #2 Vicryl stitch, the subcutaneous tissue with 2 layers of 3-0 and 4-0 Vicryl stitch and then singh for skin. Prior to closure, bilateral transversus abdominis plane blocks were then placed, and the patient was taken to the recovery room in satisfactory condition. Physician housing assistant property manager, Helen Heath, played an essential role in assisting in this case, helping to position the patient, retract structures as needed, as well as suturing and cutting sutures when indicated. Her presence improved patient safety and decreased operative time. Francisco Javier Kilgore MD /[id number]
--- NOTE | 2020-07-04 14:05 | OR ---
DATE OF PROCEDURE: 06/22/2020 SURGEON: Francisco Javier Kilgore MD PREOPERATIVE DIAGNOSIS: Indication for central venous access. POSTOPERATIVE DIAGNOSIS: Indication for central venous access. OPERATIVE PROCEDURE: Placement of double-lumen Morin catheter via left subclavian vein approach (40958). ANESTHESIA: Local plus IV sedation. INDICATIONS FOR PROCEDURE: This is a 44-year-old status post Aaron-en-Y gastric bypass, presenting with severe malnutrition. This appears to be related to a combination of probable adhesions or persistent volvulus resulting in a multitude of bowel movements per day as well as what appears to be a degree of superior mesenteric artery syndrome with a quite narrow angle between the aorta and superior mesenteric artery and significant dilation of the duodenum proximal to that location. Plan at this point has been to admit the patient, begin the patient on a period of TPN in preparation for surgical correction sometime few days from now after we reestablish a more adequate nutritional status. Potential risks of the procedure including bleeding, infection, pneumohemothorax, or vascular injury related to the catheter placement were all reviewed, and the patient wishes to proceed. DETAILS OF PROCEDURE: The patient was taken to the operating room and placed in a supine position. After IV sedation was administered, the upper chest and neck areas were prepped and draped. The left subclavian area was anesthetized with 1% lidocaine, and the subclavian vein cannulated. A guidewire was manipulated into the superior vena cava. Some additional local was then injected roughly handbreadth below the original puncture site in the anterior chest wall. A separate stab wound was then placed. The catheter was then tunneled between those 2 locations, and the catheter was cut such that the tip would lie in the area of the right atrial-vena caval junction. Over the introducer and Peel-Away catheter, the Morin catheter was then easily deployed, and good placement was confirmed fluoroscopically. The initial puncture site was then closed with 4-0 Vicryl subdermal stitch and Steri-Strips, and these were placed where the catheter exited the skin. It was closed and approximated with some 3-0 nylon stitch. Both ports were at this point aspirated with good return and flushed with heparinized saline. Dressing was applied. The patient was taken to the recovery room in satisfactory condition. Francisco Javier Kilgore MD /[id number]
--- NOTE | 2020-07-05 08:56 | PN ---
DATE OF SERVICE: 06/26/2020 Paul was in to undergo a surgical correction of a partial small bowel obstruction, along with superior mesenteric artery syndrome. Prior to induction in the operating room, she was noted to have what appeared to be a sinus node dysfunction with a variable rate and possibly some conduction delay of the sinus node-initiated rhythm. Dr. Rai was consulted and felt it would be best to postpone the surgery and proceed with cardiac workup prior to proceeding with anything surgical. Therefore, the procedure was canceled and the patient taken back to the room and will be seen by Dr. Rai more formally later this afternoon, being placed on telemetry in the interim. Francisco Javier Kilgore MD /[id number]
--- NOTE | 2020-07-06 10:46 | DISCH ---
FINAL DIAGNOSES: 1. Severe malnutrition associated with partial obstruction secondary to small bowel volvulus and intra-abdominal adhesions. 2. Superior mesenteric artery syndrome. 3. Bariatric surgery status (status post Aaron-en-Y gastric bypass 2011). 4. Severe vitamin A deficiency. 5. History of hypertension. 6. History of gastroesophageal reflux disease. 7. History of multiple of nutritional deficiencies including vitamin A, zinc, copper, and iron. 8. History of prediabetes mellitus. 9. Sinus node dysfunction. OPERATIVE PROCEDURES: 1. On 06/22/2020, placement of double-lumen Morin catheter via left subclavian vein approach. a. Exploratory laparotomy with lysis of adhesions and reduction of small bowel volvulus and closure of internal hernia. b. Small bowel resection. c. Small bowel strictureplasty. d. Aaron-en-Y duodenojejunostomy for treatment of superior mesenteric artery syndrome. e. Patient did have duodenal suspensory ([place]'s) bands. f. Placement of Interceed mesh to limit recurrent adhesion formation. SUMMARY: This is a 44-year-old female who underwent gastric bypass in 2011. Had been doing well until January, when she underwent exploratory laparotomy in [place], and had a surgical treatment for volvulus. Since that operation, she has had severe problems with diarrhea and developed quite a bit in way of edema related to hypoproteinemia and, among other things, was noted to have severe vitamin A deficiency. The patient was initially admitted for central line placement and initiation of TPN. Over a several day period, the TPN was administered, and her overall nutritional status appeared to be adequate. A CT scan was consistent with a partial small bowel obstruction, along with vascular compression of the duodenum, i.e. superior mesenteric artery syndrome. On the date of her main surgery, which was 06/29/2020, the patient underwent the above-noted procedure. Postoperatively, she did quite well, proceeding normally at that point with recurrent diarrhea, and was discharged home on postop day #2. She may continue usual medications plus oxycodone 5 mg q.4 hours p.r.n. pain, #20, and then vitamin A 50,000 units daily x14 days. Prior to the discharge, the patient had a 3-day course of 100,000 units of vitamin A IM x3 days and was initiated on oral vitamin A prior to discharge as well. Her Morin catheter was flushed with heparinized saline. She will be following up with Helen Heath in [facility], on 07/10/2020. One additional aspect of this patient's hospitalization is that, prior to her undergoing the laparotomy, she was noted to have dysfunctional sinus node findings. The procedure was initially canceled. Over the next 48 hours, this was worked up with an echocardiogram, which was essentially normal, and Dr. Rai, the hospitalist, confirmed with Cardiology, who felt that nothing needed to be done at this time, other than watching the situation, and subsequently the patient underwent the above-noted operation.
== END 2020-07-01 14:05 | disposition home or self-care (01) | DRG 220 ==
LOC: JP.MS 11:29
PROVIDERS: ADMIT Surgery; ATTEND Surgery
PROC: 02HV33Z Insertion of Infusion Device into Superior Vena Cava, Percutaneous Approach (ICD-10-PCS; 2020-06-22)
PROC: 0D160ZA Bypass Stomach to Jejunum, Open Approach (ICD-10-PCS; principal; 2020-06-29)
PROC: 0DS80ZZ Reposition Small Intestine, Open Approach (ICD-10-PCS; 2020-06-29)
PROC: 0DQ80ZZ Repair Small Intestine, Open Approach (ICD-10-PCS; 2020-06-29)
PROC: 0DB80ZZ Excision of Small Intestine, Open Approach (ICD-10-PCS; 2020-06-29)
PROC: 3E0M05Z Introduction of Adhesion Barrier into Peritoneal Cavity, Open Approach (ICD-10-PCS; 2020-06-29)
PROC: 0DN90ZZ Release Duodenum, Open Approach (ICD-10-PCS; 2020-06-29)
DX: K95.89 Other complications of other bariatric procedure (principal); K56.2 Volvulus; E43 Unspecified severe protein-calorie malnutrition; K91.2 Postsurgical malabsorption, not elsewhere classified; K21.9 Gastro-esophageal reflux disease without esophagitis; I10 Essential (primary) hypertension; E66.01 Morbid (severe) obesity due to excess calories; D50.9 Iron deficiency anemia, unspecified; F17.210 Nicotine dependence, cigarettes, uncomplicated; E50.9 Vitamin A deficiency, unspecified; E60 Dietary zinc deficiency; E61.0 Copper deficiency; K56.51 Intestinal adhesions [bands], with partial obstruction; I49.5 Sick sinus syndrome; Z79.899 Other long term (current) drug therapy; Z98.84 Bariatric surgery status; Z90.49 Acquired absence of other specified parts of digestive tract; Z98.890 Other specified postprocedural states; Z68.23 Body mass index [BMI] 23.0-23.9, adult; Y83.8 Other surgical procedures as the cause of abnormal reaction of the patient, or of later complication, without mention of misadventure at the time of the procedure
CPT/HCPCS: 36415; 36430; 74177; 74177-26; 74240; 74240-26; 76705; 76705-26; 80053; 82306; 82525; 82607; 82728; 82746; 83036; 83735; 83880; 84100; 84425; 84443; 84590; 84630; 85025; 85027; 86850; 86900; 86901; 86920; 86922; 87493; 88305; 93005; 93010; 93306; 94762; A9270-GY; C9113; J0171; J0330; J0690; J0694; J1100; J1170; J1642; J1644; J1940; J2001; J2185; J2250; J2405; J2704; J2710; J2795; J3010; J3411; J3420; J3475; J3480; J3490; J7050; J7120; J7121; P9016; P9047; Q9967; U0002